=== PATIENT | female | born 1995 | race Caucasian/White ===

== ENCOUNTER 2021-06-26 14:04 | Outpatient (REF) | payer MEDICAID, SELFPAY ==
[2021-06-26 18:08] LABS: Appearance Urine CLEAR; Color Urine YELLOW; Glucose Urine UA NEG (NEG); Leukocyte Esterase Urine NEG (NEG); Nitrite Urine NEG (NEG); Specific Gravity - Urine 1.015 (1.005-1.025); Urine Blood NEG (NEG); Urine Ketones NEG (NEG); Urine Protein NEG (NEG-TRACE)
[2021-06-27 05:14] LABS: CT PCR NOT DETECTED (Not Detect.); NG PCR NOT DETECTED (Not Detect.)
== END 2021-06-26 14:05 | disposition home or self-care (01) ==
LOC: HO.MANLDS 14:04
PROVIDERS: PCP Physician Assistant; Visit Provider Physician Assistant
DX: Z11.3 Encounter for screening for infections with a predominantly sexual mode of transmission (principal); B37.3 Candidiasis of vulva and vagina
CPT/HCPCS: 81003; 87491; 87591

== ENCOUNTER 2024-06-07 13:50 | Outpatient (REF) | payer OTHER, SELFPAY ==
[2024-06-07 14:13] LABS: MANUAL DIFF FLAG NO
[2024-06-07 14:31] LABS: Basophils Percent Auto 0.3 % (0-2); Eosinophils Absolute Auto 0.2 X10*3/uL (0.0-0.4); Eosinophils Percent Auto 2.3 % (0-4); Hematocrit 39.9 % (37.0-47.0); Hemoglobin 14.3 g/dl (12.0-16.0); Imm Gran Abs Auto 0.01 X10*3/uL (0.00-0.03); Imm Gran Pct Auto 0.2 % (0.0-0.4); Lymphocytes Absolute Auto 2.1 X10*3/uL (1.2-4.9); Lymphocytes Percent Auto 32.7 % (20-40); Mean Corpuscular HGB Conc 35.8 g/dl (31.0-35.0); Mean Corpuscular Hemoglobin 32.6 pg (27.0-33.0); Mean Corpuscular Volume 90.9 fL (80.0-98.0); Monocytes Absolute Auto 0.5 X10*3/uL (0.1-1.2); Monocytes Percent Auto 7.9 % (2-11); Neutrophils Absolute Auto 3.7 x10*3/uL (2.0-8.3); Neutrophils Percent Auto 56.6 % (45-73); Platelet Count 251 X10*3/uL (160-400); Red Blood Count 4.39 X10*6/uL (4.20-5.50); Red Cell Distribution Width 11.6 % (11.0-16.0); White Blood Count 6.6 X10*3/uL (4.8-10.8)
[2024-06-07 16:51] LABS: Alanine Aminotransferase 22 U/L (0-31); Albumin Level 4.4 g/dL (3.5-5.0); Alkaline Phosphatase 57 U/L (39-117); Anion Gap 8 (12-20); Aspartate Amino Transferase 21 U/L (5-31); Bilirubin Total 0.8 mg/dL (0.0-1.0); Blood Urea Nitrogen 13 mg/dL (9-16); Calcium 9.2 mg/dL (8.4-10.2); Carbon Dioxide 26 mmol/L (22-29); Chloride 109 mmol/L (96-108); Cholesterol 153 mg/dL (<200); Estimated Glomerular Filt Rate > 60; Glucose Random 85 mg/dL (60-115); HDL Cholesterol 49 mg/dL (>40); Iron 151 mcg/dL (30-160); LDL Cholesterol Calculated 94 mg/dL (<100); Percent Iron Saturation 54 % (15-50); Potassium 4.3 mmol/L (3.3-5.1); Sodium 139 mmol/L (135-145); Total Iron Binding Capacity 281 mcg/dL (228-428); Total Protein 7.2 g/dL (6.5-8.0); Triglycerides 52 mg/dL (<150); Unsaturated Iron Binding 130 ug/dL
--- OUTSIDE RECORDS SUMMARY | 2024-06-07 17:04 | XMS_ITS | Clinical Summary ---
Author Organization Formerly [facility] Address [address] [place] [address] Care Team Providers Care Merchandise Buyer Name Role Phone Unavailable Primary Care Provider Unavailabl e Medications No known medications Social History Tobacco Use Types Packs/Day Years Used Date Smoking Tobacco: Unknown Alcohol Use Standard Drinks/Week Comments Yes 0 (1 standard drink = 0.6 oz pur e alcohol) Sex and Gender Information Value Date Recorded Sex Assigned at Not on file Gender Identity Not on file Sexual Orientation Not on file Last Filed Vital Signs Vital Sign Reading Time Taken Comments Blood Pressure 106/65 08/02/2016 5:15 AM EDT Pulse 94 08/02/2016 5:15 AM EDT Temperature 37.1 ??C (98.7 ??F) 08/02/2016 5:15 AM ED T Respiratory Rate 19 08/02/2016 5:15 AM EDT Oxygen Saturation 95% 08/02/2016 5:15 AM EDT Inhaled Oxygen Concentration - - Weight - - Height - - Body Mass Index - - Plan of Treatment Not on file
--- OUTSIDE RECORDS SUMMARY | 2024-06-07 17:05 | XMS_ITS | Clinical Summary ---
Author Organization [facility] [address] [place] [address] [place] [phone] Phone Care Team Providers Care Lay Out Technician Name Role Phone Marco Rick DO Primary Care Provider [phone] Allergies No known active allergies Medications hydrOXYzine HCL (ATARAX) 10 mg tablet Take 1 Tablet by mouth at bedtime as needed for Itching for up to 360 days. Active triamcinolone (KENALOG) 0.1 % ointment Apply to affected area nightly Active Active Problems Problem Noted Date Diagnosed Date LSC (lichen simplex chronicus) 12/04/2023 Overview (12/23/2023): Last Assessment & Plan: Reviewed findings with patient. I reviewed the mai to overcoming her symptoms is to stop the itching and thin the thickened areas with steroid which will cut down inflammation. I recommended she take hydroxyzine at night to prevent scratching in addition to triamcinolone to areas nightly an coconut oil during the day. I reassured her there is no evidence of infection. She was strictly counseled re: VSC guidelines and given explicit written instructions for changes to make. She will soak and seal prn and stop shaving. I reviewed areas of application and amount of medication to use. She will return in 6 weeks. Encounters Date Type Department Care Team Description 05/20/2024 4:15 PM EDT Clinic Lab Collection [facility] - [address] [phone] Pre-employment drug screening (Primary Dx) from Last 3 Months Surgical History Surgery Date Site/Laterality Comments OTHER SURGICAL HISTORY PROCEDURE: DENIES PREVIOUS SURGERY Medical History Medical History Date Comments Patient denies medical problems DX:Patient denies medical problems Social History Tobacco Use Types Packs/Day Years Used Date Smoking Tobacco: Never Smokeless Tobacco: Never Alcohol Use Standard Drinks/Week Comments Yes 0 (1 standard drink = 0.6 oz pur e alcohol) Comments Unknown Sex and Gender Information Value Date Recorded Sex Assigned at Not on file Legal Sex Female 11:23 AM EST Gender Identity Not on file Sexual Orientation Not on file Obstetrics History Last Filed Vital Signs Vital Sign Reading Time Taken Comments Blood Pressure 108/83 12/04/2023 9:31 AM EDT Pulse 84 12/04/2023 9:31 AM EDT Temperature - - Respiratory Rate - - Oxygen Saturation - - Inhaled Oxygen Concentration - - Weight 75.7 kg (166 lb 12.8 oz) 12/04/2023 9:31 AM EDT Height 171.5 cm (5' 7.5 ) 11/17/2023 10 :27 AM EDT Body Mass Index 25.74 11/17/2023 10:27 AM EDT Plan of Treatment Health Maintenance Due Date Last Done Comments Pneumococcal Vaccine: Pediatrics (0 to 5 Years) and At-Risk Patients (6 to 64 Years) (1 of 2 - PCV) 12/25/2014 COVID-19 Vaccine (3 - season) 2023 08/07/2020, 07/17/2020 Depression Screening 12/08/2023 Social Influencers of Health Screening 12/08/2023 DTaP,Tdap,and Td Vaccines (8 - Td or Tdap) 11/14/2026 11/14/2016, 10/24/2008, 01/04/2001, Additional history exists Cervical Cancer Screening: Pap Smear 11/16/2026 11/17/2023, 11/17/2023, 11/17/2023 Hepatitis B Vaccines Completed 09/28/1996, 02/04/1996, 1995 HIB Vaccines Completed 04/05/1997, 06/01, 04/27/1996, Additional history exists MMR Vaccines Completed 02/19/2000, 04/05/1997 IPV Vaccines Completed 01/04/2001, 06/01, 04/27/1996, Additional history exists Varicella Vaccines Completed 10/24/2008, 12/28/1996 Meningococcal ACWY Vaccine Aged Out 10/26/2015 N o longer eligible based on patient's age to complete this topic HPV Vaccines Completed 09/10/2020, 04/2020, 03/27/2020 HIV Screening Completed 11/17/2023 Hepatitis C Screening Completed 11/17/2023 Influenza Vaccine Completed 05/14/2024, , 02/09/2020, Additional history exists Hepatitis A Vaccines Aged Out No long er eligible based on patient's age to complete this topic Meningococcal B Vaccine Aged Out No l onger eligible based on patient's age to complete this topic RSV Immunization Patients Under 20 months Aged Out No longer eligible based on patient's age to complete this topic Procedures Procedure Name Priority Date/Time Associated Diagnosis Comments POC URINE DRUG SCREEN Routine 05/21/2024 3:25 PM EDT Pre-employment drug screening HEPATITIS C SCREENING Routine 11/17/2023 HPV Routine 11/17/2023 from Last 3 Months or Most Recently Relevant to Health Maintenance Results * POC Urine Drug Screen (05/21/2024 3:25 PM EDT) Amphetamine Screen, Ur POC Negative Negative Benzodiazepines, Ur POC Negative Negative Cocaine, Ur POC Negative Negative Methamphetamine Screen, Ur POC Negative Negative Opiate Scrn, Ur POC Negative Negative THC, Ur POC Negative Negative Temperature, Ur POC 94 Urine Urine specimen obtained by clean catch procedure / Unknown 05/21/2024 3:25 PM EDT Jordan Hanley MD POINT OF CARE TEST ENTER/EDIT OR DERABLES Final Result * Cervical Cancer Screening: HPV (11/17/2023) Cervical Cancer Screening: HPV negative interpretation abstracted Kim Cavazos MD HEALTH MAINTENANCE Final Result * Hepatitis C Screening (11/17/2023) Pathologist [facility] Hepatitis C Screening abstracted Kim Cavazos MD HEALTH MAINTENANCE Final Result from Last 3 Months or Most Recently Relevant to Health Maintenance Insurance [facility] Care Teams Lay Out Technician Relationship Specialty Start Date End Date Marco Rick DO [address] [place], [place] PCP - General 09/09/23
--- OUTSIDE RECORDS SUMMARY | 2024-06-07 17:05 | XMS_ITS | Data Portability ---
Author Organization [facility] Service Address [address] [place] [address] Assessment Encounter Date Assessment Date Assessment LastModified by Organization Details LastModified Time 06/26/2020 06/26/2020 Patient agreed and verbally consents to this audio and video Telehealth appt via a [place] [id number] [place] [id number] (TELEVISION SERVICE ENGINEER) MDM MODERATE MUST MEET 2 OUT OF 3 ELEMENTS: PROBLEMS, DATA OR RISK ELEMENT 1: PROBLEMS ADDRESSED OR OR 1 UNDIAGNOSED NEW PROBLEM OR OR ELEMENT 2: DATA MUST MEET 1 OF 3 CATEGORIES CATEGORY 1: REVIEW OF PRIOR EXTERNAL NOTES, REVIEW OF RESULTS, ORDERING OF EACH TEST, ASSESSMENT REQUIRING INDEPENDENT HISTORIAN OR CATEGORY 2: OR CATEGORY 3: ELEMENT 3: RISK RISK OF COMPLICATIONS AND/OR MORBIDITY OR MORTALITY OF PATIENT MANAGEMENT PROVIDER MUST THOROUGHLY DOCUMENT EACH ELEMENT THAT IS COVERED [email or web address] Not available 06/26/2020 16:28:12 12/18/2020 12/18/2020 Patient agreed and verbally consents to this audio and video Telehealth appt via a secure platform [email or web address] Not available 12/18/2020 11:46:34 03/15/2021 03/15/2021 [id number] [place] [id number] (TELEVISION SERVICE ENGINEER) MDM MODERATE MUST MEET 2 OUT OF 3 ELEMENTS: PROBLEMS, DATA OR RISK ELEMENT 1: PROBLEMS ADDRESSED 1 OR MORE CHRONIC ILLNESS WITH EXACERBATION OR 2 OR MORE STABLE CHRONIC ILLNESSES OR 1 UNDIAGNOSED NEW PROBLEM OR 1 ACUTE ILLNESS W/SYMPTOMS OR 1 ACUTE COMPLICATED INJURY ELEMENT 2: DATA MUST MEET 1 OF 3 CATEGORIES CATEGORY 1: REVIEW OF PRIOR EXTERNAL NOTES, REVIEW OF RESULTS, ORDERING OF EACH TEST, ASSESSMENT REQUIRING INDEPENDENT HISTORIAN OR CATEGORY 2: INDEPENDENT INTERPRETATION OF TESTS BY ANOTHER PHYSICIAN OR SPECIALIST OR CATEGORY 3: DISCUSSION OF MGT OR TEST INTERPRETATION W/EXTERNAL PHYSICIAN OR SPECIALIST ELEMENT 3: RISK RISK OF COMPLICATIONS AND/OR MORBIDITY OR MORTALITY OF PATIENT MANAGEMENT PROVIDER MUST THOROUGHLY DOCUMENT EACH ELEMENT THAT IS COVERED Not available 03/15/2021 11:22:12 Plan of Treatment Reminders Order Date Submit Date Provider Last Modified By Organization Details Last Modified Time Details Appointments None recorded. Lab CBC w/ auto diff 2024 [facility], [address] [place] [address], [address], 5 12:10:31 CMP, serum or plasma 2024 [facility], [address] [place] [address], [address], 5 12:10:31 iron + TIBC + ferritin, serum 2024 [facility], [address] [place] [address], [address], 12:10:31 lipid panel, blood 2024 [facility], [address] [place] [address], [address], 5 12:10:31 vitamin D, 25-hydroxy , total, serum 2024 [facility], [address] [place] [address], [address], 12:10:31 Referral gastroente rologist referral - pt with recurrent episodes of rectal bleeding 2024 [id number] susie Mcneil APRN, [address], [place], [address], 08:29:52 Procedures None recorded. Surgeries None recorded. Imaging None recorded. Medication Orders hydrocorti sone 2.5 % topical cream with perineal applicator 2024 025 [facility]acy #[id number], [address] [place], [address], 5 12:04:24 azithromyc in 250 mg tablet 2021 022 [facility]armacy #0859, [address] [place], [address], 3 08:17:22 Guaifenesi n AC 10 mg-100 mg/5 mL oral liquid 2021 022 [facility] #[id number], [address] [place], [address], 3 08:17:33 Diflucan 150 mg tablet 2020 021 [facility] #0859, [address] [place] [address], [address], 3 15:48:34 trazodone 50 mg tablet 2020 021 [facility] #0859, [address] [place] [address], [address], 3 15:51:15 Diflucan 150 mg tablet 2020 021 [facility] #0859, [address] [place] [address], [address], 3 15:48:34 Patient TargetsNo targets recorded. Patient Instructions Encounter Date Encounter Id Patient Instructions Last Modified By Organization Details Last Modified Time 03/15/2021 [id number] controlling your asthma: care instructions Not available 03/15/2021 11:27:29 learning about asthma Not available 03/15/2021 11:27:29 05/18/2024 [id number] pulse oximetry* Not available 05/18/2024 12:04:21 hemorrhoids: car e instructions Not available 05/18/2024 12:04:22 Reason for Referral Imaging Manager Referral for Painless rectal bleeding pt with recurrent episodes of rectal bleeding Referring Physician: Marco Bigda, Internal Medicine, Encounter Date: 05/18/2024 Results Created Date Observation Date Name Description Value Unit Range Abnormal Flag Note LastModifiedBy Organization Detail LastModifiedTime 05/19/1905/18/2024 pulse oxime try* Result 98 Not Available [facility] [address] [facility] [address], [place], [address], 05/17/2024 12:13:22 08/09/19 23 07/04/2022 XR, foot, 3 or more view No observ ation record ed. [email or web address] Not Available 2022 13:21:44 03/30/19 24 03/29/2023 MRI, ankle + foot, w/o contr ast No observ ation record ed. [facility] [address], [place], [address], 05/08/2023 09:40:59 Result Notes None recorded. Problems Name Problem SNOMED Code Status Onset Date Resolution Date Notes Provider Name and Address Organization Details Recorded Time Asthma 318057398 Active 2019 Marco EarlRajat Rick, DO [address] [facility], [place], [address], [facility] 0 15:01:58 At increased risk for suicide 180914016 Active 2019 Belgica lozano [facility] 5 12:13:39 Candidias is of vagina 63277775 Active 2021 Belgica lozano [facility] 5 12:13:45 Bacterial vaginosis 546066139 Active 2021 Belgica lozano [facility] 5 12:13:45 Pain in left foot 820556623957 107 Active 2022 Belgica lozano [facility] 5 12:13:45 Acute urinary tract infection 998331494 Active 2022 Belgica lozano [facility] 5 12:13:45 Left Achilles tendiniti s 147488173248 102 Active 2023 [facility] 5 12:13:45 Painless rectal bleeding 661840927 Active 2024 Marco Caldwell Albertolavell, DO [address] [place], [address], [facility] 5 11:58:51 Hemorrhoi ds 16398618 Active 2024 Marco ElliottRajat Rick, DO [address] [place], [address], [place] [facility] 5 12:02:34 Anxiety 14258368 [facility] 12:13[facility] Problem Notes None recorded. Procedures Surgical History None recorded. Imaging Results Imaging Date Name Status LastModified by Organiz ation Details LastModified Time 07/04/2022 XR, foot, 3 or more view completed [email or web address] Information not available 08/08/2022 13:21:44 03/29/2023 MRI, ankle + foot, w/o contrast completed [facility] [address], [place], [address], 05/08/2023 09:40:59 Procedure Notes None recorded. Medical Equipment None Reported. Allergies No known drug allergies Medications Name Sig Start Date Stop Date Status Note LastModified by Organization Details LastModified Time tri-prevife m 0.18/0.215/ 0.25 mg-35 mcg tabs 03/30 completed Not Available Not Available Not Available norgestimat e/ethinyl estradiol 0.18/0.215/ 0.25 mg-35 mcg tabs 03/30 completed Not Available Not Available Not Available bupropion hydrochlori de er (xl) 300 mg tb24 03/30 completed Not Available Not Available Not Available fluoxetine hydrochlori de 40 mg caps 03/30 completed Not Available Not Available Not Available duloxetine hydrochlori de 60 mg cpep 02/12 completed Not Available Not Available Not Available fluoxetine 40 mg capsule TAKE 1 CAPSULE BY MOUTH EVERY DAY 03/30 completed Not Available Not Available Not Available prednisone 10 mg tablet TAKE 4 TABLETS BY MOUTH EVERY DAY FOR 3 DAYS 3 TABS X 3 DAYS 2 TABS X 3 DAYS 1 TAB X 3 DAYS active Not Available Not Available No t Available trazodone 50 mg tablet TAKE 1 TABLET BY MOUTH EVERY DAY 04/25 completed Not Available Not Available Not Available azithromyci n 250 mg tablet TAKE 2 TABLETS (500 MG) BY ORAL ROUTE ONCE DAILY FOR 1 DAY THEN 1 TABLET (250 MG) BY ORAL ROUTE ONCE DAILY FOR 4 DAYS 04/25 completed Not Available Not Available Not Available fluconazole 150 mg tablet TAKE 1 TABLET BY MOUTH NOW. MAY REPEAT IN 72 HOURS IF NEEDED. 04/25 completed Not Available Not Available Not Available minocycline 100 mg capsule TAKE ONE PILL BY MOUTH TWICE A DAY . TAKE WITH FOOD. AVOID CALCIUM 04/25 completed Not Available Not Available Not Available Tubersol 5 tub. unit/0.1 mL intradermal injection solution Inject 1 unit by intraderm al route. 11/09 completed Not Available Not Available Not Available sertraline 100 mg tablet 09/16 completed Not Available Not Available Not Available metronidazo le 500 mg tablet TAKE 1 TABLET BY MOUTH TWICE A DAY FOR 7 DAYS 04/25 completed Not Available Not Available Not Available sulfamethox azole 800 mg-trimetho prim 160 mg tablet TAKE 1 TABLET BY MOUTH EVERY 12 HOURS FOR 7 DAYS 05/18 completed Not Available Not Available Not Available prednisone 10 mg tablets in a dose pack 12/31 completed Not Available Not Available Not Available hydrocortis one 2.5 % topical cream with perineal applicator APPLY SPARINGLY TO AFFECTED AREA 2 TO 4 TIMES A DAY active Not Available Not Available No t Available lorazepam 0.5 mg tablet TAKE 1 TABLET BY MOUTH TWICE A DAY NEEDED 04/25 completed Not Available Not Available Not Available betamethaso ne valerate 0.1 % topical cream APPLY THIN COAT TO AFFECTED AREA TWICE A DAY 05/18 completed Not Available Not Available Not Available triamcinolo ne acetonide 0.1 % topical ointment APPLY TO AFFECTED AREA NIGHTLY FOR 2WEEKS THEN TWICE WKLY FOR MAINTENAN CE 05/18 completed Not Available Not Available Not Available clotrimazol e-betametha sone 1 %-0.05 % topical cream APPLY TOPICALLY TO AFFECTED AREA AND SURROUNDI NG AREAS OF SKIN EVERY MORNING AND EVENING FOR 5 DAYS 04/25 completed Not Available Not Available Not Available codeine 10 mg-guaifene sin 100 mg/5 mL oral liquid Take 10 mL every 4 hours by oral route for 7 days. 04/25 completed Not Available Not Available Not Available ibuprofen 600 mg tablet TAKE 1 TABLET BY MOUTH THREE TIMES A DAY FOR 7 DAYS 05/18 completed Not Available Not Available Not Available albuterol sulfate HFA 90 mcg/actuati on aerosol inhaler TAKE 2 PUFFS BY MOUTH EVERY 4 HOURS NEEDED active Not Available Not Available No t Available fluoxetine 20 mg capsule 09/16 completed Not Available Not Available Not Available bupropion HCl XL 300 mg 24 hr tablet, extended release TAKE 1 TABLET BY MOUTH EVERY DAY IN THE MORNING active Not Available Not Available No t Available bupropion HCl XL 150 mg 24 hr tablet, extended release TAKE 1 TABLET EVERY MORNING FOR 1 WEEK THEN STOP AND START TAKING THE 300 MG TABLET 06/26 completed Not Available Not Available Not Available Velivet Triphasic Regimen (28) 0.1 mg/0.125 mg/0.15 mg-25 mcg tablet TAKE 1 TABLET BY MOUTH EVERY DAY 04/25 completed Not Available Not Available Not Available Tri-Prevife m (28) 0.18 mg(7)/0.215 mg(7)/0.25 mg(7)-35 mcg tablet 12/31 completed Not Available Not Available Not Available duloxetine 60 mg capsule,del ayed release TAKE 1 CAPSULE BY MOUTH EVERY DAY 06/26 completed Not Available Not Available Not Available Boostrix Tdap 2.5 Lf unit-8 mcg-5 Lf/0.5 mL intramuscul ar syringe 09/16 completed Not Available Not Available Not Available Sronyx 0.1 mg-20 mcg tablet TAKE 1 TABLET BY MOUTH EVERY DAY 04/25 completed Not Available Not Available Not Available Vitals Date Recorded Body height Body mass index (BMI) Body weight Oxygen saturation Oxygen saturation in Arterial blood by Pulse oximetry Heart rate Systolic blood pressure Diastolic blood pressure Provider Name and Address Organization Details Last Updated DateTime 3 170.18 cm 24.7 kg/m2 60837.1 6 g 98 % 98 % 90 /min 124 mm[Hg] 72 mm[Hg] Batsheva Carlson [facility] 3 15:52:19 Date Recorded Body height Body mass index (BMI) Body weight Heart rate Oxygen saturation Oxygen saturation in Arterial blood by Pulse oximetry Systolic blood pressure Diastolic blood pressure Provider Name and Address Organization Details Last Updated DateTime 5 170.18 cm 26.2 kg/m2 51747.7 2 g 141 /min 98 % 98 % 120 mm[Hg] 80 mm[Hg] Belgica Caraballo [facility] 5 11:39:39 Social History Question Answer Notes LastModified by Organizat ion Details LastModified Time Tobacco Smoking Status Never Smoker Not Available [employer] 01/03/2020 03:36:23 What Was The Date Of Your Most Recent Tobacco Screening? 05/18/2024 [email or web address] Information not available 05/18/2024 Sex: Unknown Functional Status None recorded. Mental Status None recorded. Family History Nothing Reported. Medical History No medical history recorded. Gynecological HistoryNo gynecological history recorded. Obstetrics History GPAL:G 0 P 0 0 0 0 Immunizations Vaccine Type Date Status Note Provider Nam e and Address Organization Details Recorded Time MMR 02/19/2000 miguel lozano [facility] 12/04/2020 14:14:09 MMR 04/05/1997 miguel lozano [facility] 12/04/2020 14:14:19 varicella 10/24/2008 miguel lozano [facility] Internal [facility] 12/04/2020 14:14:37 varicella 12/28/1996 miguel lozano [facility] Internal [facility] 12/04/2020 14:14:41 Hep B, adolescent or pediatric 09/28/1996 miguel lozano [facility] 12/04/2020 14:15:03 Hep B, adolescent or pediatric 02/04/1996 miguel lozano [facility] 12/04/2020 14:15:09 Hep B, adolescent or pediatric 1995 miguel lozano [facility] Internal [facility] 12/04/2020 14:15:14 Tdap 10/24/2008 miguel lozano, [facility] 12/04/2020 14:15:28 COVID-19, mRNA, LNP-S, PF, 30 mcg/0.3 mL dose 07/17/2020 completed Batsheva lozano [facility] 04/25/2022 08:18:26 COVID-19, mRNA, LNP-S, PF, 30 mcg/0.3 mL dose 08/07/2020 completed Batsheva lozano, [facility] 04/25/2022 08:18:33 influenza, unspecified formulation 02/09/2020 completed Batsheva lozano, [facility] 04/25/2022 08:18:55 influenza, unspecified formulation 05/14/2024 completed Marlo lozano, [facility] 05/16/2024 08:27:13 Past Encounters Encounter ID Performer Location Encounter Start Date Encounter Closed Date Diagnosis/Indication Diagnosis SNOMED-CT Code Diagnosis ICD10 Code Diagnosis Note [id number] Narda Sumner NP, S [address] [address] 09/16/2017 14:46:36 09/17/2017 16:14:25 Contact dermatitis 19273972 L25.9 finish pred. as prescribed Anxiety 15305527 F41.9 symptoms will improve when off prednisone , not chronic Acne 93619426 L70.9 see if resolves with cessation of prednisone [id number] Marco Rick [address] [address] 12/31/2018 14:48:29 12/31/2018 15:15:50 Fatigue 27400167 R53.83 long discussion [id number] Marco Rick [address] [address] 03/30/2019 14:17:55 03/30/2019 14:51:15 Active or passive immunization 470994653 Z23 Anxiety 63938508 F41.9 will change to duloxetine 60 stop fluoxetine will decrease the wellbutrin to 150 for now and see how this plays out [id number] Marco Rick DO [facility] [address] [address] 08/02/2019 14:40:03 08/02/2019 15:09:03 Asthma 160465136 J45.909 using inhaler more with activities Fractured nasal bones 26 7498029 S02.2XXA Deviated nasal septum 12 1564774 J34.2 will refer to ent 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 Marco Rick [facility] [address] [place] [place] [address] 11/21/2019 09:34:17 11/21/2019 10:00:48 Tuberculosis screening 523943071 Z11.1 [id number] Marco Rick [facility] Internal [facility] [address] [place] [address] 11/23/2019 09:52:14 11/23/2019 10:27:53 Tuberculosis screening 792346759 Z11.1 [id number] LINK COLON [facility] [address] [address] 02/13/2020 08:47:09 02/13/2020 15:46:32 Suicide attempt 55592163 T14.91XD not necessaril y a true suicide attempt but will document in chart in case Tachycardia 8933649 R00. 0 seeing cardio tomorrow for fu with holter and scheduling echo Anxiety 60300045 F41.9 following with psychiatry [id number] LINK [place]ON [facility] [address] [place] [address] 06/26/2020 09:15:20 06/26/2020 16:53:08 Candidiasis of vagina 26436818 B37.3 yeast infection with pruritis and increased discharge Anxiety 06173392 F41.9 following with psychiatry stopped medication s stable per patient [id number] LINK [place]ON [facility] [address] [address] 12/18/2020 08:34:43 12/18/2020 15:04:49 Anxiety 91339698 F41.1 following with psychiatry stopped medication s stable per patient Insomnia 893815317 G47.0 9 will trial on trazodone for sleep related to increased anxiety Candidal vulvovaginitis 51362724 B37.3 will give the patient diflucan for current yeast infection [id number] Marco Rick [facility] [address] [address] 03/15/2021 09:12:47 03/19/2021 11:23:48 Asthmatic bronchitis 820307964 J45.909 Asthma 813978643 J45.90 9 using inhaler more with activities Anxiety 83567939 F41.1 will change to duloxetine 60 will decrease the wellbutrin to 150 for now and see how this plays out [id number] L[address] [place]ON [facility] [address] [address] 04/25/2022 15:38:57 04/25/2022 16:17:03 Asthma 227144520 J45.20 stable Anxiety 67071445 F41.1 stable per patient [id number] Marco Rick [facility] [address] [address] 05/18/2024 11:30:08 05/18/2024 13:30:45 Active or passive immunization 455315758 Z23 Adult heal th examination 779036457 Z00.00 Asthma 663904445 J45.20 using inhaler more with activities Painless r ectal bleeding 276097864 K62.5 Hemorrhoids 91464140 K64 .9 Health Concerns Section Related Observation LastModified by Organization Detai ls LastModified Time None Recorded Concern Status LastModified by Organization Details LastModified Time None Recorded Advance Directives Directive None Recorded Payers Encounter Date Sequence Insurance Name Policy Number Policy Campbell Covered Member ID Campbell Member ID Guarantor Name 06/26/2020 1 [place] [id number] [facility] [id number] [facility] 12/18/2020 1 [place] [facility] Sammi [facility] [id number] Sammi Jackson 03/15/2021 1 [place] [facility] Sammi Jackson [id number] Sammi Jackson 04/25/2022 1 [place] [facility] Sammi Jackson [id number] Sammi Jackson 05/18/2024 1 [place] [facility] [id number] Sammi Jackson [id number] Sammi Jackson Notes Date Note Type Note Provider Name a nd Address Organization Details Recorded Time 1 text/html medication fu the patient has stopped her anxiety medications she wanted to see how she felt off of them and her anxiety is stable the patient is working on finding a new job the patient is waiting to get a COVID vaccine the patient has a yeast infection again discussed symptoms, increased discharge, itching and mild discomfort will send in script of diflucan for patient to use otherwise the patient is doing well LINK [place] [address] [place], [address], [facility] 06/26/2020 16:29:43 1 text/html medication tele-med anxiety: the patient states she has been feeling goodstates everything feels stable the patient does report she has a lot of anxiety which she has discussed with her therapist who recommended trazodone and lexaprodiscussed MOA of the medications, dosing and how they help with anxiety the patient is will hold on starting lexaprofeels the bupropion is working better now that she isn't drinking as much will fu in a month to discuss the medications and any further adjustments that need to be made [place] [place] [address] [place], [address], [facility] 12/18/2020 11:48:46 2 text/html patient is evaluated via tele/video assessment per patient consentduring current pandemic began as a negin congest last week and has been having sore throat and coughstates has been having mult testing for covid and is negativedid have a negative pcrand recently has gotten worse Marco Rick DO [address] [place], [address], [facility] 03/15/2021 11:27:46 3 text/html medication check asthma: stable with the albuterolthe patient uses it for cold weather and for exerciseno new night-time symptomsstable, doing better with the inhaler on board anxiety: doing really well on the bupropionalso helped her lose weight which she is pleased with her progress vital were stable [place]INK [place]ON [address] [place], [address], [facility] 04/25/2022 16:15:10 5 text/html Annual WellnessReported bypatient.Diet and Nutrition:healthy diet Fracture Risk:no history of fractures; no recent explained fracture; no sudden unexplained fractures; no previous musculoskeletal injuries Physical Activity:exercises on a regular basis; recent increase in physical activity; good physical condition Additional Lifestyle Factors:no tobacco use; no alcohol intake; stopped drinking alcohol Depression Risk:never feels sad, empty, or tearful; no loss of interest in activities; no significant changes in weight; no sleep disturbances or insomnia; no agitation; no loss of energy; no feelings of worthlessness or guilt; no thoughts of suicide; no history of depression; no history of mood disorders Hearing:no loss of hearing Vision:no vision problems Marco Rick DO [address] [place], [address], [facility] 05/18/2024 12:05:43 OBGyn Episode No OBEpisode recorded.
--- OUTSIDE RECORDS SUMMARY | 2024-06-07 17:05 | XMS_ITS | Data Portability ---
Author Organization [facility], , [facility] Address [address] [place] [address] Care Team Providers Care Blue Leather Sorter Name Role Phone [facility] KAREN BARBA Primary Care Provider Unavailab le Assessment No assessment recorded. Plan of Treatment Reminders Order Date Submit Date Provider Last Modified By Organization Details Last Modified Time Details Appointments None recorded. Lab urinalysis, dipstick 2014 015 [facility], [address] [place] [address], [id number], 5 17:49:50 culture, urine 2014 015 [facility], [address] [place] [address], [id number], 5 09:12:21 CT + NG DNA, PCR, unspecified specimen 2014 015 [facility], [address] [place] [address], [id number], 5 16:05:47 CT + NG DNA, PCR, unspecified specimen 2013 014 [facility], [address] [place] [address], [id number], 4 21:09:23 Referral None recorded. Procedures screening for mood disorder (PROC) 2013 [address] [place] [address], [address] [place] [address], [id number], 4 15:19:15 Surgeries None recorded. Imaging None recorded. Medication Orders Bactrim DS 800 mg-160 mg tablet 2014 015 [id number], [address] [place] [address], [place], [id number], 5 17:49:50 Patient TargetsNo targets recorded. Patient Instructions Encounter Date Encounter Id Patient Instructions Last Modified By Organization Details Last Modified Time 07/15/2013 [id number] ear pain Warm compresseson the ear Avoid allergy exposures - dust, mold, pets or pollen. Recommend a daily antihistimine: over the counter loratadine (claritin), or cetirizine (zyrtec). A neti-pot or other saline nasal rinse may improve the symptoms. Follow up if symptoms continue or worsen. [email or web address] Not available 07/15/2013 17:25:15 10/19/2013 [id number] -Nurse visit for HPV #1 and menactra (print copy of vaccines) -PHA 1 year [email or web address] Not available 10/19/2013 15:17:15 01/03/2014 [id number] -Check with your insurance to 1) make sure they cover the device AND placement, 2) who they pay for to do it (a specific adult education teacher) - can check insurance website first -Let me know who you would like me to refer you to as a adult education teacher (there are a few people in the area)? ? ? so I can place it (you can call or portal) Not available 01/03/2014 16:14:48 03/20/2014 [id number] Try Delsym for the cough. Not available 03/20/2014 12:40:08 My Health To Do List As we discussed and agreed upon at your visit please work on the following: Not available 03/20/2014 12:40:08 Reason for Referral None Reported. Results Created Date Observation Date Name Description Value Unit Range Abnormal Flag Note LastModifiedBy Organization Detail LastModifiedTime 08/08/1908/07/2014 urina lysis , dipst ick Leukocytes Small Not Available [address], [address], 08/07/2014 15:27:28 08/08/19 15 08/07/2014 urina lysis , dipst ick Nitrite negati ve Not Available [address], [address], 08/07/2014 15:27:28 08/08/19 15 08/07/2014 urina lysis , dipst ick Urobilinogen 1 Not Available [address], [address], 08/07/2014 15:27:28 08/08/19 15 08/07/2014 urina lysis , dipst ick Protein 30 Not Available [address], [address], 08/07/2014 15:27:28 08/08/19 15 08/07/2014 urina lysis , dipst ick pH 7.0 Not Available [address], [address], 08/07/2014 15:27:28 08/08/19 15 08/07/2014 urina lysis , dipst ick Blood Non-He molyze d: Trace Not Available [address], [address], 08/07/2014 15:27:28 08/08/19 15 08/07/2014 urina lysis , dipst ick Specific [place] 1.015 Not Available [address], [address], 08/07/2014 15:27:28 08/08/19 15 08/07/2014 urina lysis , dipst ick Ketone Negati ve Not Available [address], [address], 08/07/2014 15:27:28 08/08/19 15 08/07/2014 urina lysis , dipst ick Bilirubin Negati ve Not Available [address], [address], 08/07/2014 15:27:28 08/08/19 15 08/07/2014 urina lysis , dipst ick Glucose Negati ve Not Available [address], [address], 08/07/2014 15:27:28 08/08/19 15 08/07/2014 urina lysis , dipst ick Appearance Cloudy Not Available [address], [address], 08/07/2014 15:27:28 08/08/19 15 08/07/2014 urina lysis , dipst ick Color Dark Yellow Not Available [address], [address], 08/07/2014 15:27:28 10/20/19 14 10/19/2013 edelmira harden for mood disor elizabeth (PROC ) Patient Score 4 Not Available [address], [address], 10/19/2013 15:17:15 10/20/19 14 10/23/2013 CT + NG DNA, PCR, unspe cifie d speci men N. gonorrhoeae Neg negati ve Not Available [address], [address], 10/23/2013 21:09:23 10/20/19 14 10/23/2013 CT + NG DNA, PCR, unspe cifie d speci men C. trachomatis Neg negati ve Not Available [address], [address], 10/23/2013 21:09:23 06/13/19 15 06/12/2014 CBC w/ auto diff WBC 10.5 K/uL 3.4-11 .2 Not Available [facility] [address] [place], [address], 06/12/2014 11:22:19 06/13/19 15 06/12/2014 CBC w/ auto diff RBC 4.77 M/uL 3.80-4 .80 Not Available [facility] [address] [place], [address], 06/12/2014 11:22:19 06/13/19 15 06/12/2014 CBC w/ auto diff hemoglobin 14.9 g/dL 12.0-1 5.0 Not Available [facility] ([facility] [address] [place], [address], 06/12/2014 11:22:19 06/13/19 15 06/12/2014 CBC w/ auto diff hematocrit 42.6 % 36.0-4 6.0 Not Available [facility] ([facility]) [address] [place], [address], 06/12/2014 11:22:19 06/13/19 15 06/12/2014 CBC w/ auto diff MCV 89.3 fL 79.0-9 8.0 Not Available [facility]) [address] [place] [address], [address], 06/12/2014 11:22:19 06/13/19 15 06/12/2014 CBC w/ auto diff MCH 31.2 pg 27.0-3 4.8 Not Available [facility] [address] [place], [address], 06/12/2014 11:22:19 06/13/1906/12/2014 CBC w/ auto diff MCHC 35.0 g/dL 31.5-3 6.0 Not Available [facility]) [address] [place] [address], [address], 06/12/2014 11:22:19 06/13/1906/12/2014 CBC w/ auto diff RDW 11.9 % 10.8-1 4.6 Not Available [facility]) [address] [place] [address], [address], 06/12/2014 11:22:19 06/13/1906/12/2014 CBC w/ auto diff MPV 10.5 fL 9.4-12 .4 Not Available [facility] [address] [place], [address], 06/12/2014 11:22:19 06/13/19 15 06/12/2014 CBC w/ auto diff platelet count 221 K/uL 130-40 0 Not Available [facility]) [address] [place] [address], [address], 06/12/2014 11:22:19 06/13/19 15 06/12/2014 CBC w/ auto diff neutrophils 91.0 % 45.3-7 7.7 high Not Available [facility]) [address] [place] [address], [id number], 06/12/2014 11:22:19 06/13/19 15 06/12/2014 CBC w/ auto diff lymphocytes 4.0 % 12.3-3 9.7 low Not Available [facility] [address] [place] [address], [address], 06/12/2014 11:22:19 06/13/19 15 06/12/2014 CBC w/ auto diff monocytes 4.0 % 4.1-12 .8 low Not Available [facility]) [address] [place] [address], [address], 06/12/2014 11:22:19 06/13/19 15 06/12/2014 CBC w/ auto diff eosinophils 0.00 % 0.00-7 .20 Not Available [facility] [address] [place] [address], [address], 06/12/2014 11:22:19 06/13/19 15 06/12/2014 CBC w/ auto diff basophils 0.00 % 0.00-2 .80 Not Available [facility] [address] [place] [address], [address], 06/12/2014 11:22:19 06/13/19 15 06/12/2014 CBC w/ auto diff absolute neutrophil 9.7 K/uL 1.4-7. 7 high Not Available [facility]) [address] [place] [address], [id number], 06/12/2014 11:22:19 06/13/19 15 06/12/2014 CBC w/ auto diff absolute lymphocyte 0.4 K/uL 0.6-3. 2 low Not Available [facility]) [address] [place] [address], [address], 06/12/2014 11:22:19 06/13/19 15 06/12/2014 CBC w/ auto diff absolute monocytes 0.4 K/uL 0.1-0. 6 Not Available [facility]) [address] [place] [address], [address], 06/12/2014 11:22:19 06/13/19 15 06/12/2014 CBC w/ auto diff absolute eosinophil 0.00 K/uL 0.01-0 .50 low Not Available [facility]) [address] [place] [address], [address], 06/12/2014 11:22:19 06/13/19 15 06/12/2014 CBC w/ auto diff absolute basophils 0.00 K/uL Not Available [facility]) [address] [place] [address], [address], 06/12/2014 11:22:19 06/13/19 15 06/12/2014 CBC w/ auto diff immature granulocyte 0.30 % 0.00-0 .50 Not Available [facility]) [address] [place] [address], [address], 06/12/2014 11:22:19 06/13/19 15 06/12/2014 CBC w/ auto diff absolute immature granulocyte 0.03 K/uL 0.00-0 .03 Not Available [facility] [address] [place] [address], [address], 06/12/2014 11:22:19 06/13/19 15 06/12/2014 diffe ziyad verduzco l, blood bands 1 % 0-15 Not Available [facility] [address] [place], [address], 06/12/2014 11:22:20 06/13/19 15 06/12/2014 ziyad salas l, blood RBC morphology Normal Not Available [facility] [address] [place], [address], 06/12/2014 11:22:20 06/13/19 15 06/12/2014 basic metab olic panel glucose 111 mg/dL 70-99 high Not Available [facility] [address] [place], [address], 06/12/2014 11:22:21 06/13/19 15 06/12/2014 basic metab olic panel BUN 19 mg/dL 6-19 Not Available [facility] [address] [place] [address], [address], 06/12/2014 11:22:21 06/13/19 15 06/12/2014 basic metab olic panel creatinine 0.8 mg/dL 0.5-1. 5 Not Available [facility] [address] [place], [address], 06/12/2014 11:22:21 06/13/19 15 06/12/2014 basic metab olic panel GFR >60 mL/mi n >60 NKDEP (Noni onal Kidne y Disea se Educa tion Progr am) does not endor se the use of the MDRD (Wanda ficat ion of Diet in Renal Disea se) equat ion for estim ating GFR in patie nts that are not betwe en the ages of 18 and 70. Not Available [facility]) [address] [place], [address], 06/12/2014 11:22:21 06/13/19 15 06/12/2014 basic metab olic panel sodium 135 mEq/L 133-14 5 Not Available [facility] [address] [place], [address], 06/12/2014 11:22:21 06/13/19 15 06/12/2014 basic metab olic panel potassium 4.1 mEq/L 3.3-5. 1 Not Available [facility] [address] [place], [address], 06/12/2014 11:22:21 06/13/19 15 06/12/2014 basic metab olic panel chloride 98 mEq/L 96-108 Not Available [facility] [address] [place], [address], 06/12/2014 11:22:21 06/13/19 15 06/12/2014 basic metab olic panel CO2 29 mEq/L 21-35 Not Available [facility]) [address] [place] [address], [address], 06/12/2014 11:22:21 06/13/19 15 06/12/2014 basic metab olic panel calcium 9.8 mg/dL 8.4-10 .3 Not Available [facility] [address] [place], [address], 06/12/2014 11:22:21 06/13/19 15 06/12/2014 basic metab olic panel anion gap 12 mEq/L 10-20 Not Available [facility] [address] [place] [address], [address], 06/12/2014 11:22:21 06/13/19 15 06/12/2014 C-scott ctive prote in, quant itati ve, serum or plasm a C-reactive protein 0.35 mg/dL 0.00-0 .50 Not Available [facility] [address] [place], [address], 06/12/2014 11:22:22 06/13/19 15 06/12/2014 hepat ic funct ion panel , serum alkaline phosphatase 78 U/L 39-117 Not Available [facility] [address] [place], [address], 06/12/2014 11:22:23 06/13/19 15 06/12/2014 hepat ic funct ion panel , serum total bilirubin 0.8 mg/dL 0.0-1. 2 Not Available [facility] ([facility] [address] [place], [address], 06/12/2014 11:22:23 06/13/19 15 06/12/2014 hepat ic funct ion panel , serum bilirubin direct <0.2 mg/dL 0.0-0. 3 Not Available [facility] ([facility] [address] [place], [address], 06/12/2014 11:22:23 06/13/19 15 06/12/2014 hepat ic funct ion panel , serum bilirubin indirect see below mg/dL Not able to calcu late. Not Available [facility] [address] [place], [address], 06/12/2014 11:22:23 06/13/19 15 06/12/2014 hepat ic funct ion panel , serum AST (SGOT) 14 U/L 0-37 Not Available [facility] [address] [place], [address], 06/12/2014 11:22:23 06/13/19 15 06/12/2014 hepat ic funct ion panel , serum ALT (SGPT) 10 U/L 0-40 Not Available [facility] [address] [place], [address], 06/12/2014 11:22:23 06/13/19 15 06/12/2014 hepat ic funct ion panel , serum total protein 7.4 g/dL 6.5-8. 0 Not Available [facility] ([facility]) [address] [place], [address], 06/12/2014 11:22:23 06/13/19 15 06/12/2014 hepat ic funct ion panel , serum albumin 4.7 g/dL 3.9-4. 8 Not Available [facility] [address] [place] [address], [address], 06/12/2014 11:22:23 06/13/19 15 06/12/2014 hepat ic funct ion panel , serum globulin 2.7 gm/dL 1.0-4. 8 Not Available [facility]) [address] [place] [address], [address], 06/12/2014 11:22:23 06/13/19 15 06/12/2014 hepat ic funct ion panel , serum A/G ratio 1.7 gm/dL 1.0-4. 8 Not Available [facility]) [address] [place] [address], [address], 06/12/2014 11:22:23 06/13/19 15 06/12/2014 lipas e, serum or plasm a lipase 19 U/L 16-63 Not Available [facility]) [address] [place] [address], [address], 06/12/2014 11:22:24 06/13/19 15 06/12/2014 pregn krystian test, urine test, urine Negati ve negati ve Not Available [facility]) [address] [place] [address], [address], 06/12/2014 12:29:20 08/08/19 15 08/09/2014 cultu re, urine culture, urine, routine CULTU RE, URINE , ROUTI NE MICRO NUMBE R: [id number] TEST STATU S: FINAL SPECI MEN SOURC E: URINE SPECI MEN QUALI TY: ADEQU ATE RESUL T: Multi ple organ isms prese nt, each less than 10,00 0 CFU/m L. These organ isms, commo nly found on exter nal and inter nal genit juan r, are consi dered to be colon izers . No furth er testi ng perfo rmed. Not Available [facility] [address], [place], [address], 08/09/2014 09:12:21 08/08/19 15 08/13/2014 CT + NG DNA, PCR, unspe cifie d speci men N. gonorrhoeae Neg negati ve Not Available [address], [address], 08/13/2014 16:05:47 08/08/19 15 08/13/2014 CT + NG DNA, PCR, unspe cifie d speci men C. trachomatis Neg negati ve Not Available [address], [address], 08/13/2014 16:05:47 Result Notes None recorded. Problems Name Problem SNOMED Code Status Onset Date Resolution Date Notes Provider Name and Address Organization Details Recorded Time Dyspnea 478712464 Completed 01/19/2013 Not Available [facility] 3 02:02:45 Visual disturbanc e 57652544 Active Not Available [facility] 3 03:15:17 Asthma 771084917 Active Not Available [facility] 3 03:34:35 Exercise-i nduced asthma 34734550 Active Not Available [facility] 3 03:15:17 Problem Notes None recorded. Procedures Surgical History Date Name Laterality Status Provider Name and Address Organization Details Recorded Time 4 Cerumen Removal completed Izabela Troy CMA(AAMA) [facility] 07/15/2013 17:25:11 2 IV Therapy completed Karen Barba [address] [place] [place] [address], [phone], [facility] 12/03/2011 13:16:41 2 Asthma Control Test (12 + years old) completed Josselin Delgado CMA [facility] 10/22/2011 09:08:33 0 Asthma Control Test (12 + years old) completed Angie Rapp [facility] 11/14/2009 16:23:33 Imaging Results None recorded. Procedure Notes None recorded. Medical Equipment None Reported. Allergies No known drug allergies Medications Name Sig Start Date Stop Date Status Note LastModified by Organization Details LastModified Time Vicodin 5 mg-500 mg tablet Take 2 tablets 3 times a day by oral route. 2011 active Not Available Not Available Not Avai lable prednison e 20 mg tablet Take 3 tablets every day by oral route for 2 days. 12/04 completed was itchy and jittery so stopped taking it Not Available Not Available Not Available penicilli n V potassium 500 mg tablet Take 1 tablet twice a day by oral route for 10 days. 12/09 completed Not Available Not Available Not Available norgestim ate-ethin yl estradiol 0.18mg/0. 215mg/0.2 5mg-0.035 mg(28)tab let take 1 tablet by mouth once daily 2012 active Not Available Not Available Not Avai lable albuterol sulfate HFA 90 mcg/actua tion aerosol inhaler Inhale 2 puffs every 4 hours by inhalati on route. 2013 active Not Available Not Available Not Avai lable sodium chloride 0.9 % solution 2011 active Not Available Not Available Not Avai lable Bactrim DS 800 mg-160 mg tablet Take 1 tablet every 12 hours by oral route for 3 days. 2014 active Not Available Not Available Not Avai lable Ortho Tri-Cycle n LO (28) 0.18 mg/0.215 mg/0.25 mg-25 mcg tablet Take 1 tablet every day by oral route for 84 days. 2013 active needs [facility] supply to [facility] Not Available Not Available Not Available Vicodin 5 mg-300 mg tablet Take 2 tablets 3 times a day by oral route. 2011 active Pharmacy didn't have Not Available Not Available Not Available Vitals Date Recorded Body weight Body height Body mass index (BMI) Heart rate Systolic blood pressure Diastolic blood pressure Provider Name and Address Organization Details Last Updated DateTime 4 57693.3 3943 g 169.672 cm 21.9 kg/m2 80 /min 112 mm[Hg] 76 mm[Hg] Lillian Simmons, [facility] 4 16:58:37 Date Recorded Body weight Heart rate Systolic blood pressure Diastolic blood pressure Provider Name and Address Organization Details Last Updated DateTime 10/19/2013 43712.708 91 g 68 /min 104 mm[Hg] 60 mm[Hg] Abbie Sullivan [facility] 10/19/2013 14:01:21 Date Recorded Body height Body mass index (BMI) Provider Name and Address Organization Details Last Updated DateTime 10/19/2013 169.545 cm 22.6 kg/m2 Karen Darnell Barba [address] [place] [address], [phone], [facility] 10/19/2013 14:54:06 Date Recorded Body weight Heart rate Systolic blood pressure Diastolic blood pressure Provider Name and Address Organization Details Last Updated DateTime 01/03/2014 25702.670 76 g 68 /min 118 mm[Hg] 70 mm[Hg] Abbie Sullivan [facility] 01/03/2014 15:40:37 Date Recorded Body height Body mass index (BMI) Body weight Heart rate Body temperature Systolic blood pressure Diastolic blood pressure Provider Name and Address Organization Details Last Updated DateTime 5 169.545 cm 22.8 kg/m2 89304.0 06615 g 78 /min 97.7 [degF] 120 mm[Hg] 74 mm[Hg] Ni Willis [facility] 5 12:23:39 Date Recorded Body weight Body height Body mass index (BMI) Heart rate Body temperature Systolic blood pressure Diastolic blood pressure Provider Name and Address Organization Details Last Updated DateTime 5 99781.8 14110 g 169.545 cm 22.7 kg/m2 90 /min 98 [degF] 120 mm[Hg] 78 mm[Hg] Sammi Dye [facility] 5 15:26:21 Social History Question Answer Notes LastModified by Organizat ion Details LastModified Time Tobacco Smoking Status Never Smoker Not Available [facility] 01/16/2011 04:39:41 What Is Your Level Of Alcohol Consumption? None Information not available 10/20/2012 What Is Your Level Of Caffeine Consumption? None Information not available 01/16/2011 Which Illicit Or Recreational Drugs Have You Used? None Information not available 10/20/2012 Education 12 HS Information no t available 03/20/2014 Sibling Name Samuel Information not available 10/20/2012 Sibling Name Brock Information not available 10/20/2012 Sibling Name Vikash Information not available 10/20/2012 Seat Belts Used Routinely Yes Information not available 10/20/2012 Are You Sexually Active? Yes Information not available 10/20/2012 What Types Of Sporting Activities Do You Participate In? Soccer, Track Information not available 10/20/2012 Sex: Unknown Functional Status Question Answer Note LastModified by Organization D etails LastModified Time What is your exercise level? Heavy Information not available 10/20/2012 Mental Status None recorded. Family History Relationship Description Onset Age of this Age Resolved Age Notes LastModified by Organization Details LastModified Time Mother Problem health y Not available 10/19/2013 14:24:30 Mother Problem endome triosi s/hyst erecto my Not available 10/19/2013 14:24:30 Mother Migraine Not availab le 10/19/2013 14:24:30 Mother Spinal stenosis Not available 10/19 14:24:30 Brother Problem develo pmenta l delay Not available 10/19/2013 14:24:30 Brother Problem chroni c append icitis Not available 10/19/2013 14:24:30 Father Problem health y Not available 10/19/2013 14:24:30 Maternal Grandmother Disorder of thyroid gland hashim otos thyroi ditis Not available 10/19/2013 14:24:30 Maternal Grandmother Malignant tumor of colon 38 Not available 10/19 14:24:30 Maternal Grandmother Degenerative disorder of macula Not available 10/19 14:24:30 Maternal Grandmother Spinal stenosis Not available 10/19 14:24:30 Maternal Grandfather Myocardial infarction 52 Not available 10/01 14:24:30 Paternal Grandfather Myocardial infarction 48 CABG Not available 10/01 14:24:30 Medical History Condition Response Asthma Y Gynecological History Statement/Question Response Menses Monthly Y Current Control Method BCPs Age at Menarche 12 Obstetrics History GPAL:G 0 P 0 0 0 0 Immunizations Vaccine Type Date Status Note Provider Nam e and Address Organization Details Recorded Time Influenza, split virus, trivalent, preservative 2 completed Not Available [facility] 03/19/2019 02:18:31 DTaP, unspecified formulation 7 completed Not Available [facility] 01/15/2011 05:22:41 DTaP, unspecified formulation 8 completed Not Available [facility] 01/15/2011 05:22:41 DTaP, unspecified formulation 1 completed Not Available [facility] 01/15/2011 05:22:41 DTaP, unspecified formulation 7 completed Not Available [facility] 01/15/2011 05:22:41 DTaP, unspecified formulation 7 completed Not Available [facility] 01/15/2011 05:22:41 MMR 0 completed Not Available [facility] 01/15/2011 05:22:41 Hep B, unspecified formulation 6 completed Not Available [facility] 01/15/2011 05:22:41 Hib, unspecified formulation 7 completed Not Available [facility] 01/15/2011 05:22:41 Hep B, unspecified formulation 7 completed Not Available [facility] 01/15/2011 05:22:41 Hib, unspecified formulation 7 completed Not Available [facility] 01/15/2011 05:22:41 OPV 7 completed Not Available [facility] 01/15/2011 05:22:41 Hib, unspecified formulation 7 completed Not Available [facility] 01/15/2011 05:22:41 Hep B, unspecified formulation 6 completed Not Available [facility] 01/15/2011 05:22:41 OPV 7 completed Not Available [facility] 01/15/2011 05:22:41 Tdap 9 completed Not Available [facility] 01/15/2011 05:22:41 OPV 7 completed Not Available [facility] 01/15/2011 05:22:41 Hib, unspecified formulation 8 completed Not Available [facility] 01/15/2011 05:22:41 OPV 1 completed Not Available [facility] 01/15/2011 05:22:41 MMR 8 completed Not Available [facility] 01/15/2011 05:22:41 varicella 9 completed Josselin Delgado PICK UP OPERATOR null, [facility] 10/22/2011 09:16:16 varicella 7 completed Josselin Delgado PICK UP OPERATOR blake, [facility] 10/22/2011 09:16:16 Past Encounters Encounter ID Performer Location Encounter Start Date Encounter Closed Date Diagnosis/Indication Diagnosis SNOMED-CT Code Diagnosis ICD10 Code Diagnosis Note [id number] FP, C, OFFICE [address] [place] [address] 10/16/2009 13:47:14 10/23/2009 09:08:52 [id number] , C, OFFICE [address] [place] [address] 10/19/2009 09:27:47 10/24/2009 14:53:53 [id number] FP, C, OFFICE [address] [place] [address] 11/14/2009 16:02:03 11/19/2009 12:37:17 [id number] FP, C, OFFICE [address] [place] [address] 05/09/2010 11:59:27 05/14/2010 14:40:16 [id number] Radiology , [facility] [address] [place] [address] 05/09/2010 12:29:44 05/10/2010 12:10:26 [id number] FP, C, OFFICE [address] [place] [address] 10/15/2010 14:47:34 10/15/2010 17:01:00 [id number] FP, E[facility], OFFICE [address] [facility] [place] [address] 10/21/2010 12:19:28 10/21/2010 12:40:45 [id number] Radiology , [facility] [address] [facility] [place] [address] 10/21/2010 16:00:47 10/22/2010 11:43:04 [id number] , [facility], OFFICE [address] [facility] [place] [address] 02/11/2011 14:58:14 02/12/2011 13:44:39 [id number] , [facility], OFFICE [address] [facility] [place] [address] 07/31/2011 11:29:28 07/31/2011 12:20:59 [id number] , [facility], OFFICE [address] [facility] [place] [address] 10/09/2011 11:55:33 10/09/2011 12:38:02 [id number] Radiology , [facility] [address] [facility] [place] [address] 10/09/2011 12:37:30 10/16/2011 15:17:15 [id number] [facility], OFFICE [address] [facility] [place] [address] 10/22/2011 08:49:37 10/22/2011 09:46:02 [id number] Jordan Pérez MD , [facility], OFFICE [address] [place] [address] 11/30/2011 11:19:16 12/01/2011 08:38:27 [id number] Jordan Miller MD , [facility], OFFICE [address] [facility] [place] [address] 12/01/2011 17:48:49 12/01/2011 18:14:22 [id number] Karen Barba , [facility], OFFICE [address] [facility] [place] [address] 6 12/03/2011 10:07:04 12/03/2011 12:27:17 [id number] Karlie Sainz , [facility], OFFICE [address] [facility] [place] [address] 12/05/2011 13:54:09 12/05/2011 15:44:40 [id number] Jordan Miller MD , [facility], OFFICE [address] [place] [address] 12/23/2011 08:52:32 12/24/2011 22:02:42 [id number] Kostas Gutierrez , [facility], OFFICE [address] [place] [address] 12/23/2011 09:21:32 12/23/2011 10:47:54 [id number] [facility], OFFICE [address] [place] [address] 04/26/2012 16:01:45 04/27/2012 11:02:22 [id number] Abbie Sullivan LPN , [facility], OFFICE [address] [place] [address] 07/14/2012 15:24:47 07/15/2012 06:36:18 [id number] , [facility], OFFICE [address] [place] [address] 10/20/2012 10:23:05 10/20/2012 11:55:35 Well child [id number] Counseling [id number] Examinatio n for population survey [id number] Abbie Sullivan LPN , [facility], OFFICE [address] [place] [address] 05/25/2013 15:25:31 05/25/2013 16:24:18 Dysmenorrhea [id number] Pt would like to go back to ortho-tric yclen to see if this helps other symptoms. Plan on follow-up in 2-3 months. Pain of breast [id number] May be related to control pill. Will change and follow-up in 2-3 months. Fatigue [id number] Will ch mark labwork to make sure no other reason for fatigue - may be related to OCP or sleep and school. Plan on follow-up in 2-3 months. [id number] ELVIA Villatoro , [facility], OFFICE [address] [place] [address] 6 07/15/2013 16:46:20 07/15/2013 17:24:58 Viral upper respiratory tract infection [id number] , [facility], OFFICE [address] [place] [address] 10/19/2013 13:51:14 10/19/2013 15:21:02 Well child [id number] Examinatio for population survey [id number] Thea Mccallum , [facility], OFFICE [address] [place] [address] 01/03/2014 15:28:06 01/03/2014 16:17:52 Dysmenorrhea [id number] Pt would like to try the implanon given that she is having issue rememberin g to take pills and she doesn't think she can make it in every 3 months. She would rather have the implanon than an IUD. [id number] Savannah Kevin , [facility], OFFICE [address] [place] [address] 03/20/2014 12:16:42 03/20/2014 12:41:35 Acute upper respiratory infection [id number] Educated patient that URI is a viral illness of the upper airways. It is not bacterial and does not benefit from antibiotic s. Average duration of URI is 7-10 days but in a recent trial, treatment at 7-10 days of illness with antibiotic s, intranasal steroids, or placebo did not alter natural history at 3 weeks. Recommende d symptomati c treatments including NSAIDS, semi-uprig ht sleep position, antihistam macrina at HS, limited course of nasal sympathomi metics and/or cough syrups, and nasal saline rinses with soft squeeze bottle or Neti pot. Return for fevers > 101 for 3 days, worsening sinus pain, or failure to resolve in 2-4 weeks. [id number] [facility], OFFICE [address] [place] [address] 08/07/2014 15:05:41 08/07/2014 15:54:04 Urinary tract infectious disease [id number] Will start Bactrim since she is significan tly uncomforta ble; lots of fluids; check urine culture since UA was equivocal; follow up as needed. Also addressed need for control: is interested in Nexplanon and given info re: getting it. Health Concerns Section Related Observation LastModified by Organization Detai ls LastModified Time None Recorded Concern Status LastModified by Organization Details LastModified Time None Recorded Advance Directives Directive None Recorded Payers Encounter Date Sequence Insurance Name Policy Number Policy Campbell Covered Member ID Campbell Member ID Guarantor Name 07/15/2013 1 [place]) [id number] [facility] [id number] Minerva Birchenough 10/19/2013 1 [place]) [id number] [facility]ai [facility] [place] [id number] Minerva Birchenough 01/03/2014 1 [place]) [id number] Sai [facility] [id number] Minerva Birchenough 03/20/2014 1 [place]) [id number] Sai [facility] [place] [id number] Minerva Birchenough 08/07/2014 1 [place]) [id number] Sai [facility] [id number] [facility] [place] Notes Date Note Type Note Provider Name and Address Organization Details Recorded Time 01/03/2014 text/html [facility] She has been on the pill; she was having trouble remembering to take it. She has never had nausea, lightheadedness, etc. with the pill. Pt is interested in the implanon - her friend has it. Pt isn't interested in the depo shot - pt feels like she wouldn't be able to get here every three months for the shot. Karen Barba [address] [place], [address], [facility] 01/03/2014 16:17:20 08/07/2014 text/html 3 days of urinar y urgency but only goes small amounts, and then has burning afterwards. New partner over the past couple of months. No fever or back pain. Shiloh Bernstein MD [address] [place], [address], [facility] 08/09/2014 11:43:28 OBGyn Episode No OBEpisode recorded.
[2024-06-07 17:13] LABS: Vitamin D 25-OH Total 35.1 ng/mL (>30)
== END 2024-06-07 13:51 | disposition home or self-care (01) ==
LOC: HO.LAB 13:50
PROVIDERS: PCP Internal Medicine; Visit Provider Internal Medicine
DX: Z00.00 Encounter for general adult medical examination without abnormal findings (principal); K62.5 Hemorrhage of anus and rectum; Z13.6 Encounter for screening for cardiovascular disorders
CPT/HCPCS: 36415; 80053; 80061; 82306; 83540; 85025

== ENCOUNTER 2024-09-11 16:20 | Emergency (ER) | payer OTHER, SELFPAY ==
--- NOTE | 2024-09-11 | ECG_ITS ---
Test Reason : chest pain Blood Pressure : */* mmHG Vent. Rate : 64 BPM Atrial Rate : 64 BPM P-R Int : 140 ms QRS Dur : 90 ms QT Int : 406 ms P-R-T Axes : 43 75 49 degrees QTcB Int : 418 ms Poor data quality, interpretation may be adversely affected Normal sinus rhythm Normal ECG No previous ECGs available Referred By: Generic ED Physician Electronically Signed By: FABRICIO EWING
--- NOTE | ~2024-09-11 | XR_ITS ---
CLINICAL HISTORY: shortness of breath Chest Radiographs, 2 views Comparison: None available Findings: No cardiomegaly. Normal mediastinal contours. No pneumothorax. No opacity. No pleural effusion. Normal upper abdomen. No acute fracture. Impression: No acute findings. This document has been electronically signed by: Preethi Holloway MD on 09/11/2024 17:37:28
[2024-09-11 16:43] VITALS: BP 131/87; PULSE 90; RESP 16; TEMP 36.9; O2SAT 99; BMI 25.5
--- NOTE | 2024-09-11 16:44 | ED_ITS ---
HPI - General Adult General Chief complaint: Upper Respiratory Symptoms Stated complaint: chest pain, flu like symptoms Time Seen by Provider: 09/11/24 19:25 Related Data Previous Rx's ?Medication ?Instructions ?Recorded benzonatate 200 mg capsule 200 mg PO TID PRN cough #10 caps 09/11/24 methocarbamol 750 mg tablet 1,500 mg (2 x 750 mg) PO B EDTIME 09/11/24 PRN pain #8 tabs Allergies Allergy/AdvReac Type Severity Reaction Status Date / Time No Known Allergies Allergy Verified 09/11/24 16:46 [facility] Social History Social History Alcohol intake: current Alcohol intake frequency: holidays/special occasions only Smoked in Last 30 Days: Yes Use of substances other than those prescribed or required for medical reasons: No Advance Directives: No Advance Directives Information Provided: No Do you have a plan to hurt others: No Plan Patient : No Physical Exam ED Vital Signs: Vital Signs - 24 hr 09/11/24 16:43 09/11/24 19:04 09/11/24 19:05 Temperature 98.4 F 98.0 F Pulse Rate 90 76 Respiratory Rate 16 18 Blood Pressure 131/87 131/80 Pulse Oximetry 99 99 99 Oxygen Delivery Method Room Air Room Air Room Air 09/11/24 20:31 Temperature 98 F Pulse Rate 70 Respiratory Rate 18 Blood Pressure 139/90 H Pulse Oximetry 99 Oxygen Delivery Method Room Air BMI result Body Mass Index 25.5 Course Course Course Narrative: Medical screening exam performed. Please refer to detailed history, exam, evaluation, and management by primary provider. 28-year-old female, history of tachycardia, exercise-induced asthma, presents with chest pain or shortness of breath. No tobacco, no marijuana, no drug use. Lung sounds clear at triage. Hemodynamically stable and afebrile. Check labs, EKG, imaging. Medications Administered Discontinued Medications Generic Name Dose Route Start Last Admin Trade Name Freq PRN Reason Stop Dose Admin Methocarbamol 1,500 mg 09/11/24 20:21 09/11/24 20:28 Methocarbamol 750 Mg Tablet PO 09/11/24 20:22 1,500 mg ONCE ONE Administration Medical Decision Making Lab Data 09/11/24 18:02 09/11/24 18:02 Labs: Lab Results 09/11/24 09/11/24 Range/Units 17:35 18:02 WBC 7.1 (4.8-10.8) X10*3/uL RBC 4.41 (4.20-5.50) X10*6/uL Hgb 14.1 (12.0-16.0) g/dl Hct 40.8 (37.0-47.0) % MCV 92.5 (80.0-98.0) fL MCH 32.0 (27.0-33.0) pg MCHC 34.6 (31.0-35.0) g/dl RDW 12.0 (11.0-16.0) % Plt Count 252 (160-400) X10*3/uL MPV 9.8 (9.4-12.3) fL Immature Gran % (Auto) 0.3 (0.0-0.4) % Neut % (Auto) 56.3 (45-73) % Lymph % (Auto) 33.8 (20-40) % [place] % (Auto) 7.2 (2-11) % Eos % (Auto) 2.0 (0-4) % Baso % (Auto) 0.4 (0-2) % Lymph # (Auto) 2.4 (1.2-4.9) X10*3/uL [place] # (Auto) 0.5 (0.1-1.2) X10*3/uL Eos # (Auto) 0.1 (0.0-0.4) X10*3/uL Baso # (Auto) 0.0 (0.0-0.2) X10*3/uL Abs Immat Gran (auto) 0.02 (0.00-0.03) X10*3/uL Absolute Neuts (auto) 4.0 (2.0-8.3) x10*3/uL Absolute Nucleated RBC 0.000 (0.0-0.012) X10*3/uL Nucleated RBC % (auto) 0.0 (0.0-0.2) /100WBC Sodium 142 (135-145) mmol/L Potassium 3.6 (3.3-5.1) mmol/L Chloride 105 (96-108) mmol/L Carbon Dioxide 28 (22-29) mmol/L Anion Gap 13 (12-20) BUN 13 (9-16) mg/dL Creatinine 0.83 (0.5-1.4) mg/dL Estim Creat Clear Calc 101.7 Estimated GFR > 60 Random Glucose 112 (60-115) mg/dL Calcium 9.7 (8.4-10.2) mg/dL Total Bilirubin 0.6 (0.0-1.0) mg/dL AST 24 (5-31) U/L ALT 26 (0-31) U/L Alkaline Phosphatase 75 (39-117) U/L Troponin I High Sens < 2.7 (<3.5-17.0) ng/L Total Protein 7.8 (6.5-8.0) g/dL Albumin 5.0 (3.5-5.0) g/dL Lipase 19 (8-78) U/L Beta HCG, Quant < 2 mIU/mL Influenza Type A (PCR) NEGATIVE (Negative) Influenza Type B (PCR) NEGATIVE (Negative) RSV RNA Qual (PCR) NEGATIVE (Negative) SARS-CoV-2 RNA (RT-PCR) NEGATIVE (Negative) Discharge Plan Discharge Clinical Impression: Viral infection Patient Disposition: Home, Self-Care Instructions: Viral Syndrome (ED) Additional Instructions: All of your screening labs were normal including a cardiac enzyme. There were no concerning changes on the EKG, your chest x-ray is clear, you do not have pneumonia. The viral panel was negative, you were screened for influenza RSV and COVID. You have a virus as the underlying cause for your congestion, chest discomfort and cough. Use the Tessalon Perles as needed for cough. Use your albuterol as needed for the cough. Use the methocarbamol as needed for your chest discomfort. You should also be using ibuprofen 600 mg taken every 6 hours with food, as the chest discomfort is related to inflammation. You can also use [id number] Mucinex per package instructions for chest congestion. Follow up with your primary care provider as needed. Prescriptions: New methocarbamol 750 mg tablet 1,500 mg PO BEDTIME PRN (Reason: pain) Qty: 8 0RF benzonatate 200 mg capsule 200 mg PO TID PRN (Reason: cough) Qty: 10 0RF Interventions: ED Discharge Assessment Last Done: 09/11/24 20:31 Discharge Date/Time: 09/11/24 20:36 Print Language: Eritrean
[2024-09-11 18:07] LABS: MANUAL DIFF FLAG NO
[2024-09-11 18:08] LABS: Hematocrit 40.8 % (37.0-47.0); Hemoglobin 14.1 g/dl (12.0-16.0); Imm Gran Abs Auto 0.02 X10*3/uL (0.00-0.03); Imm Gran Pct Auto 0.3 % (0.0-0.4); Lymphocytes Absolute Auto 2.4 X10*3/uL (1.2-4.9); Mean Corpuscular HGB Conc 34.6 g/dl (31.0-35.0); Mean Corpuscular Hemoglobin 32.0 pg (27.0-33.0); Mean Corpuscular Volume 92.5 fL (80.0-98.0); NRBC Abs Auto 0.000 X10*3/uL (0.0-0.012); NRBC Pct Auto 0.0 /100WBC (0.0-0.2); Platelet Count 252 X10*3/uL (160-400); Red Blood Count 4.41 X10*6/uL (4.20-5.50); White Blood Count 7.1 X10*3/uL (4.8-10.8)
[2024-09-11 18:27] LABS: Alanine Aminotransferase 26 U/L (0-31); Albumin Level 5.0 g/dL (3.5-5.0); Alkaline Phosphatase 75 U/L (39-117); Anion Gap 13 (12-20); Aspartate Amino Transferase 24 U/L (5-31); Blood Urea Nitrogen 13 mg/dL (9-16); Calcium 9.7 mg/dL (8.4-10.2); Carbon Dioxide 28 mmol/L (22-29); Chloride 105 mmol/L (96-108); Creatinine Clr Calc Pharmacy 101.7; Estimated Glomerular Filt Rate > 60; Lipase 19 U/L (8-78); Potassium 3.6 mmol/L (3.3-5.1); Sodium 142 mmol/L (135-145); Total Protein 7.8 g/dL (6.5-8.0)
[2024-09-11 18:31] LABS: Troponin-I High Sensitivity < 2.7 ng/L (<3.5-17.0)
[2024-09-11 18:35] LABS: Resp Syncy Virus RNA Qual PCR NEGATIVE (Negative); SARS COV2 PCR INHOUSE NEGATIVE (Negative)
[2024-09-11 19:04] VITALS: BP 131/80; PULSE 76; RESP 18; TEMP 36.7; O2SAT 99
[2024-09-11 19:05] VITALS: O2SAT 99
--- NOTE | 2024-09-11 20:22 | ED.GENADULT ---
HPI - General Adult General Chief complaint: Upper Respiratory Symptoms Stated complaint: chest pain, flu like symptoms Time Seen by Provider: 09/11/24 19:25 Source: patient Limitations: no limitations History of Present Illness ED Provider: Vika Yeh PA-C HPI narrative: 28-year-old female with a history of asthma presents with cough and cold symptoms x4 days. Associated nasal congestion, chest congestion expelling yellow sputum. The cough is repetitive and bronchospasm like at times, worse at night. Associated central chest tightness, that has been quite bothersome. Denies fever or sick contacts with similar symptoms. Related Data Previous Rx's ?Medication ?Instructions ?Recorded benzonatate 200 mg capsule 200 mg PO TID PRN cough #10 caps 09/11/24 methocarbamol 750 mg tablet 1,500 mg (2 x 750 mg) PO BEDTIME 09/11/24 PRN pain #8 tabs Allergies Allergy/AdvReac Type Severity Reaction Status Date / Time No Known Allergies Allergy Verified 09/11/24 16:46 Review of Systems Review of Systems: Yes all other systems are reviewed and are negative Constitutional: Constitutional: Denies fatigue and Denies fever(s) ENT: Reports nasal congestion Cardiovascular: Cardiovascular: Reports chest pain and Denies dyspnea Respiratory: Respiratory: Reports chest congestion, Reports cough, Denies dyspnea and Denies wheezing Endocrine: Endocrine: Denies fatigue Allergic/Immunologic: Allergic/Immunologic: Denies wheezing PMFSH Past Medical History Attestation statement: The following information was validated with the patient. Social History Social History Alcohol intake: current Alcohol intake frequency: holidays/special occasions only Smoked in Last 30 Days: Yes Use of substances other than those prescribed or required for medical reasons: No Advance Directives: No Advance Directives Information Provided: No Do you have a plan to hurt others: No Plan Patient : No Physical Exam ED Vital Signs: Vital Signs - 24 hr 09/11/24 16:43 09/11/24 19:04 09/11/24 19:05 Temperature 98.4 F 98.0 F Pulse Rate 90 76 Respiratory Rate 16 18 Blood Pressure 131/87 131/80 Pulse Oximetry 99 99 99 Oxygen Delivery Method Room Air Room Air Room Air 09/11/24 20:31 Temperature 98 F Pulse Rate 70 Respiratory Rate 18 Blood Pressure 139/90 H Pulse Oximetry 99 Oxygen Delivery Method Room Air BMI result Body Mass Index 25.5 Const Other: Alert well-appearing Orientation/consciousness: patient oriented x3 Resp Other: Nonlabored respirations, lungs clear to auscultation no wheezing Cardio Other: Normal peripheral perfusion Skin Other: Warm dry no rash Neuro General: patient oriented x3, gait normal, no focal motor deficits and CN's II-XI intact bilaterally Psych Other: Cooperative Medications Administered Discontinued Medications Generic Name Dose Route Start Last Admin Trade Name Freq PRN Reason Stop Dose Admin Methocarbamol 1,500 mg 09/11/24 20:21 09/11/24 20:28 Methocarbamol 750 Mg Tablet PO 09/11/24 20:22 1,500 mg ONCE ONE Administration Medical Decision Making Medical Decision Making MDM Narrative: 28-year-old female with a history of asthma presents with cough and cold symptoms x4 days. Associated chest congestion expelling yellow sputum. The cough is repetitive and bronchospasm like at times, worse at night. Associated central chest tightness, that has been quite bothersome. Denies fever or sick contacts with similar symptoms. Problem: Asthma History: Per patient I have considered the following differential diagnoses: ACS, costochondritis, pneumonia, bronchitis, asthma exacerbation, viral syndrome, seasonal allergies Plan: ACS was considered, however the patient has no risk factors for coronary artery disease, her heart score is 0. Screening labs including a cardiac enzymes EKG and chest x-ray were obtained. Viral panel obtained it is negative. The patient has yet another virus causing your symptoms. This is also not asthma exacerbation, she has no wheezing. At best she may have a bronchospasm type cough. She has an inhaler at home. We will send with symptomatic care. I have independently reviewed the following tests: Labs: No leukocytosis, not anemic, no electrolyte abnormality, troponin negative, not , viral panel negative EKG: Normal sinus rhythm, rate of 64, no ischemic changes no ectopy QTC 418 Chest x-ray:No cardiomegaly. Normal mediastinal contours. No pneumothorax. No opacity. No pleural effusion. Normal upper abdomen. No acute fracture. Impression: No acute findings. Lab Data 09/11/24 18:02 09/11/24 18:02 Labs: Lab Results 09/11/24 09/11/24 Range/Units 17:35 18:02 WBC 7.1 (4.8-10.8) X10*3/uL RBC 4.41 (4.20-5.50) X10*6/uL Hgb 14.1 (12.0-16.0) g/dl Hct 40.8 (37.0-47.0) % MCV 92.5 (80.0-98.0) fL MCH 32.0 (27.0-33.0) pg MCHC 34.6 (31.0-35.0) g/dl RDW 12.0 (11.0-16.0) % Plt Count 252 (160-400) X10*3/uL MPV 9.8 (9.4-12.3) fL Immature Gran % (Auto) 0.3 (0.0-0.4) % Neut % (Auto) 56.3 (45-73) % Lymph % (Auto) 33.8 (20-40) % [place] % (Auto) 7.2 (2-11) % Eos % (Auto) 2.0 (0-4) % Baso % (Auto) 0.4 (0-2) % Lymph # (Auto) 2.4 (1.2-4.9) X10*3/uL [place] # (Auto) 0.5 (0.1-1.2) X10*3/uL Eos # (Auto) 0.1 (0.0-0.4) X10*3/uL Baso # (Auto) 0.0 (0.0-0.2) X10*3/uL Abs Immat Gran (auto) 0.02 (0.00-0.03) X10*3/uL Absolute Neuts (auto) 4.0 (2.0-8.3) x10*3/uL Absolute Nucleated RBC 0.000 (0.0-0.012) X10*3/uL Nucleated RBC % (auto) 0.0 (0.0-0.2) /100WBC Sodium 142 (135-145) mmol/L Potassium 3.6 (3.3-5.1) mmol/L Chloride 105 (96-108) mmol/L Carbon Dioxide 28 (22-29) mmol/L Anion Gap 13 (12-20) BUN 13 (9-16) mg/dL Creatinine 0.83 (0.5-1.4) mg/dL Estim Creat Clear Calc 101.7 Estimated GFR > 60 Random Glucose 112 (60-115) mg/dL Calcium 9.7 (8.4-10.2) mg/dL Total Bilirubin 0.6 (0.0-1.0) mg/dL AST 24 (5-31) U/L ALT 26 (0-31) U/L Alkaline Phosphatase 75 (39-117) U/L Troponin I High Sens < 2.7 (<3.5-17.0) ng/L Total Protein 7.8 (6.5-8.0) g/dL Albumin 5.0 (3.5-5.0) g/dL Lipase 19 (8-78) U/L Beta HCG, Quant < 2 mIU/mL Influenza Type A (PCR) NEGATIVE (Negative) Influenza Type B (PCR) NEGATIVE (Negative) RSV RNA Qual (PCR) NEGATIVE (Negative) SARS-CoV-2 RNA (RT-PCR) NEGATIVE (Negative) Discharge Plan Discharge Clinical Impression: Viral infection Patient Disposition: Home, Self-Care Instructions: Viral Syndrome (ED) Additional Instructions: All of your screening labs were normal including a cardiac enzyme. There were no concerning changes on the EKG, your chest x-ray is clear, you do not have pneumonia. The viral panel was negative, you were screened for influenza RSV and COVID. You have a virus as the underlying cause for your congestion, chest discomfort and cough. Use the Tessalon Perles as needed for cough. Use your albuterol as needed for the cough. Use the methocarbamol as needed for your chest discomfort. You should also be using ibuprofen 600 mg taken every 6 hours with food, as the chest discomfort is related to inflammation. You can also use [id number] Mucinex per package instructions for chest congestion. Follow up with your primary care provider as needed. Prescriptions: New methocarbamol 750 mg tablet 1,500 mg PO BEDTIME PRN (Reason: pain) Qty: 8 0RF benzonatate 200 mg capsule 200 mg PO TID PRN (Reason: cough) Qty: 10 0RF Interventions: ED Discharge Assessment Last Done: 09/11/24 20:31 Discharge Date/Time: 09/11/24 20:36 Print Language: Swedish
[2024-09-11 20:31] VITALS: BP 139/90; PULSE 70; RESP 18; TEMP 36.6; O2SAT 99
== END 2024-09-11 20:36 | disposition home or self-care (01) ==
PROVIDERS: Physician Assistant; Emergency Provider Emergency Medicine; PCP Internal Medicine
DX: B34.9 Viral infection, unspecified (principal); R07.89 Other chest pain; R09.81 Nasal congestion; R05.9 Cough, unspecified; R09.89 Other specified symptoms and signs involving the circulatory and respiratory systems; R10.2 Pelvic and perineal pain; Z03.818 Encounter for observation for suspected exposure to other biological agents ruled out
CPT/HCPCS: 71046; 80053; 83690; 84484; 84702; 85025; 87637; 93005; 99283; 99284

== ENCOUNTER → 2024-09-11 16:32 | Outpatient (BNV) | payer OTHER, SELFPAY | PROVIDERS: Emergency Provider Emergency Medicine; PCP Internal Medicine; Visit Provider Internal Medicine | DX: R07.89 Other chest pain (principal) | CPT/HCPCS: 93010 ==

== ENCOUNTER → 2024-09-11 16:47 | Outpatient (BNV) | payer OTHER, SELFPAY | PROVIDERS: PCP Internal Medicine; Visit Provider Radiology Diagnostic Radiology | DX: R06.02 Shortness of breath (principal) | CPT/HCPCS: 71046 ==

== ENCOUNTER 2025-02-01 16:20 | Outpatient (REF) | payer OTHER, SELFPAY ==
[2025-02-01 18:24] LABS: MANUAL DIFF FLAG NO
--- OUTSIDE RECORDS SUMMARY | 2025-02-01 18:56 | XMS_ITS | Encounter Summary ---
Author Organization [facility] Address [address] [place] [address] Phone Care Team Providers Care Fiberglass Auto Body Repairer Name Role Phone Marco Rick DO Unavailable Marco Rick DO Primary Care Provider [phone] Encounter Details Date Type Department Care Team (Late st Contact Info) Description 01/18/2025 Telephone [facility] [address] [place] [address] Prem Garcia MD [address] [address] [email or web address] Social History Tobacco Use Types Packs/Day Years Used Date Smoking Tobacco: Never Smokeless Tobacco: Never Alcohol Use Standard Drinks/Week Comments Yes 0 (1 standard drink = 0.6 oz pur e alcohol) Education Answer Date Recorded Are you interested in more education? Not on kelly e 06/27/2022 Are you concerned about learning? Not on file 06/27/2022 No 06/27/2022 No 06/27/2022 Digital Access Answer Date Recorded No 07/25/2022 No 07/25/2022 Reliable internet access at home? Not on file 07/25/2022 Device with a working camera? Not on file Comments No Sex and Gender Information Value Date Recorded Sex Assigned at Not on file Legal Sex Female 8:51 PM EDT Gender Identity Not on file Sexual Orientation Not on file documented as of this encounter Progress Notes * Naomie Ko 01/18/2025 1:39 PM EST Pt called to schedule colonoscopy, had consult on 11/28/24. Please call documented in this encounter Plan of Treatment Scheduled Procedures Name Priority Associated Diagnoses Date/Ti me COLONOSCOPY Blood in stool documented as of this encounter Visit Diagnoses Not on filedocumented in this encounter Care Teams Fib[employer] Auto Body Repairer Relationship Specialty Start Date End Date Marco Rick DO [email or web address] PCP - General Internal Medicine 10/21/17 Marco Rick DO Internal Medicine 10/21/17 documented as of this encounter Additional Source Comments The information contained in this document represents components of the legal health record. It is not the complete legal health record.[facility]
--- OUTSIDE RECORDS SUMMARY | 2025-02-01 18:56 | XMS_ITS | Clinical Summary ---
Author Organization [facility] Prior to 07/30/[address] [place] [id number] Care Team Providers Care Image Editor Name Role Phone Unavailable Primary Care Provider [...] 94 08/02/2016 5:15 AM EDT Temperature 37.1 C (98.7 F) 08/02/2016 5:15 AM EDT Respiratory Rate 19 08/02/2016 5:15 AM EDT Oxygen Saturation 95% 08/02/2016 5:15 AM EDT Inhaled Oxygen Concentration - - Weight - - Height - - Body Mass Index - - Plan of Treatment Not on file
--- OUTSIDE RECORDS SUMMARY | 2025-02-01 18:56 | XMS_ITS | Clinical Summary ---
Author Organization [facility] [address] [place] [address] [place] [phone] Phone Care Team Providers Care Construction Assistant Name Role Phone Marco Rick DO Primary Care Provider [phone] Allergies No known active allergies Medications hydrOXYzine [...] use. She will return in 6 weeks. Surgical History Surgery Date Site/Laterality Comments OTHER [...] 5 Years) and At-Risk Patients (6 to 49 Years) (1 of 2 - PCV) 12/25/2014 Social Influencers of Health Screening 12/08/2023 Depression Screening 03/02/2024 COVID-19 Vaccine (3 - season) 2024 08/07/2020, 07/17/2020 Influenza Vaccine (#1) 2024 , 05/12/2024, 02/09/2020, Additional history exists DTaP,Tdap,and Td Vaccines (8 - Td or Tdap) 11/14/2026 11/14/2016, 10/24/2008, 01/04/2001, Additional history exists Cervical Cancer Screening: Pap Smear 11/16/2026 11/17/2023, 11/17/2023 RSV Immunization Adult Patients (1 - 1-dose 75+ series) 12/25/2070 Hepatitis B Vaccines Completed 09/28/1996, 02/04/1996, 1995 HIB Vaccines Completed 04/05/1997, 06/01, 04/27/1996, Additional history exists MMR Vaccines Completed 02/19/2000, 04/05/1997 IPV Vaccines Completed 01/04/2001, 06/01, 04/27/1996, Additional history exists Varicella Vaccines Completed 10/24/2008, 12/28/1996 Meningococcal ACWY Vaccine Aged Out 10/26/2015 N o longer eligible based on patient's age to complete this topic HPV Vaccines Completed 09/10/2020, 03/0 04/2020, 03/27/2020 HIV Screening Completed 11/17/2023 Hepatitis C Screening Completed 11/17/2023 Hepatitis A Vaccines Aged Out No long er eligible based on patient's age to complete this topic Meningococcal B Vaccine Aged Out No l onger eligible based on patient's age to complete this topic RSV Immunization Patients Under 20 months Aged Out No longer eligible based on patient's age to complete this topic Procedures Procedure Name Priority Date/Time Associated Diagnosis Comments HEPATITIS C SCREENING Routine 11/17/2023 PAP SMEAR Routine 11/17/2023 from Last 3 Months or Most Recently Relevant to Health Maintenance Results * Hepatitis C Screening (11/17/2023) Hepatitis C Screening abstracted [facility] Provider MD HEALTH MAINTENANCE Final Result * Pap Smear (11/17/2023) Pap smear negative interpretation abstracted [facility] Provider MD HEALTH MAINTENANCE Final Result from Last 3 Months or Most Recently Relevant to Health Maintenance Insurance [facility] Care Teams Construction Assistant Relationship Specialty Start Date End Date Marco Rick DO [address] [facility] [address] [place], [place] PCP - General 09/09/23
--- OUTSIDE RECORDS SUMMARY | 2025-02-01 18:56 | XMS_ITS | Data Portability ---
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 JACKER) MDM MODERATE MUST MEET 2 OUT OF [...] THAT IS COVERED Not available 03/15/2021 11:22:12 02/01/2025 02/01/2025 [id number] [place] [id number] (PRIZE JACKER) MDM MODERATE MUST MEET 2 OUT OF [...] EACH ELEMENT THAT IS COVERED Not available 02/01/2025 16:11:14 Plan of Treatment Reminders Order Date Submit Date Provider Last Modified By Organization Details Last Modified Time Details Appointments NEW PROBLEM 15 2024 03:45P M DR BANG Not available Not available Not available Lab CBC w/ auto diff 2024 025 [facility], [address] [place] [address], [id number], 02/01/2025 16:20:43 iron + TIBC + ferritin, serum 2024 025 [facility], [address] [place] [address], [address], 02/01/2025 16:20:42 vitamin B12, serum 2024 025 [facility], [address] [place] [address], [address], 02/01/2025 16:20:42 vitamin D, 25-hydrox y, total, serum 2024 025 [facility], [address] [place] [address], [address], 02/01/2025 16:20:42 TSH + free T4, serum 2024 025 [facility], [address] [place] [address], [address], 02/01/2025 16:20:43 CBC w/ auto diff 2024 025 [facility], [address] [place] [address], [address], 05/18/2024 12:10:31 CMP, serum or plasma 2024 025 [facility], [address] [place] [address], [place], [address], 06/08/2024 13:41:55 iron + TIBC + ferritin, serum 2024 025 [facility], [address] [place] [address], [place], [address], 06/08/2024 13:41:55 lipid panel, blood 2024 025 [facility], [address] [facility], [place], [address], 06/08/2024 13:41:55 vitamin D, 25-hydrox y, total, serum 2024 025 [facility], [address] [place] [address], [address], 05/18/2024 12:10:31 Referral gastroent erologist referral - pt with recurrent episodes of rectal bleeding 2024 025 susie Mcneil APRN, [address] [facility] [place], [place], [address], 05/31/2024 08:29:52 Procedures None recorded. Surgeries None recorded. Imaging None recorded. Medication Orders hydrocort isone 2.5 % topical cream with perineal applicato r 2024 025 [facility] #[id number], [address] [place] [address], [address], 02/01/2025 16:03:51 azithromy jorge 250 mg tablet [email or web address]/[facility]armacy #0828, [address] [place] [address], [address], 02/01/2025 16:03:29 Guaifenes in AC 10 mg-100 mg/5 mL oral liquid 2021 022 [facility]armacy #0831, [address] [place], [address], 04/25/2022 08:17:33 Diflucan 150 mg tablet 2020 021 [facility]acy #0859, [address] [place], [address], 04/25/2022 15:48:34 trazodone 50 mg tablet 2020 021 [id number] [address] [place], [address], 04/25/2022 15:51:15 Patient TargetsNo targets recorded. 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 [email or web address] Not Available 2022 13:21:44 03/30/19 24 03/29/2023 MRI, ankle + foot, w/o contr ast No observ ation record ed. [facility] [address] [facility], [place], [address], 05/08/2023 09:40:59 09/12/19 25 09/11/2024 XR, chest , 2 view No observ ation record ed. [email or web address] [facility] (Medical Records) [address] [facility], [place], [address], 09/12/2024 08:23:12 Result Notes None recorded. Problems Name Problem SNOMED Code Status Onset Date Resolution Date Notes Provider Name and Address Organization Details Recorded Time Anxiety 47178594 Active 2017 Belgica lozano [facility] 5 12:13:39 Asthma 555726321 Active 2019 Marco Bang, DO [address] [place] [address], [address], [facility] 0 15:01:58 At increased risk for suicide 359265097 Active 2019 Belgica lozano [facility] 5 12:13:39 Candidias is of vagina 17447663 Active 2021 Belgica loazno [facility] 5 12:13:45 Bacterial vaginosis 995459017 Active 2021 Belgica lozano [facility] 5 12:13:45 Pain in left foot 026289605360 107 Active 2022 Belgica lozano [facility] 5 12:13:45 Acute urinary tract infection 627268709 Active 2022 Belgica lozano [facility] 5 12:13:45 Left Achilles tendiniti s 816080348857 102 Active 2023 Belgica lozano [facility] 5 12:13:45 Painless rectal bleeding 208339919 Active 2024 Marco Bang, DO [address] [place], [address], [facility] 5 11:58:51 Hemorrhoi ds 97503309 Active 2024 Marco Caldwell Merline, DO [address] [place], [address], [facility] 5 12:02:34 Acute infective bronchiti s 349287894 Active 2024 [facility] [address] [place], [address], [facility] 5 12:22:36 Fatigue 90051262 Active 2024 Marco EarlRajat Bang, DO [address] [place], [address], [facility] 5 16:15:12 Problem Notes None recorded. Medical Equipment None Reported. [...] Available Not Available prednisone 10 mg tablet 4 tabs x 3 days3 tabs x 3 days2 tabs x 3 days1 tab x 3 days 11/09 completed Not Available Not Available Not Available trazodone 50 mg tablet TAKE 1 TABLET BY MOUTH EVERY DAY 04/25 completed Not Available Not Available Not Available azithromyci n 250 mg tablet TAKE 2 TABLETS BY MOUTH TODAY, THEN TAKE 1 TABLET DAILY FOR 4 DAYS DIRECTED 02/01 completed Not Available Not Available Not Available [...] AREA 2 TO 4 TIMES A DAY 02/01 completed Not Available Not Available Not Available lorazepam 0.5 mg tablet TAKE 1 [...] completed Not Available Not Available Not Available methylpredn isolone 4 mg tablets in a dose pack TAKE 6 TABLETS ON DAY 1 DIRECTED ON PACKAGE AND DECREASE BY 1 TAB EACH DAY FOR A TOTAL OF 6 DAYS 02/01 completed Not Available Not Available Not Available [...] mass index (BMI) Body weight Oxygen saturation Heart rate Systolic And Diastolic Provider Name and Address Organization Details Last Updated DateTime 3 170.18 cm 24.7 kg/m2 55329.1 6 g 98 % 90 /min 124/72 mm[Hg] [facility] 3 15:52:19 Date Recorded Body height Body mass index (BMI) Body weight Heart rate Oxygen saturation Systolic And Diastolic Provider Name and Address Organization Details Last Updated DateTime 5 170.18 cm 26.2 kg/m2 72369.7 2 g 141 /min 98 % 120/80 mm[Hg] Belgica Caraballo [facility] 5 11:39:39 Date Recorded Body height Body mass index (BMI) Body weight Oxygen saturation Heart rate Systolic And Diastolic Provider Name and Address Organization Details Last Updated DateTime 5 170.18 cm 27.1 kg/m2 07476.2 g 98 % 79 /min 108/72 mm[Hg] ASIAEarl PEREZ [facility] 5 16:06:38 Social History Question Answer Notes LastModified by Organizat ion Details LastModified Time Tobacco Smoking Status Never Smoker Not Available [employer] 01/03/2020 03:36:23 What Was The Date Of Your Most Recent Tobacco Screening? 02/01/2025 [email or web address] Information not available 02/01/2025 Sex: Unknown Functional Status None recorded. Mental Status None recorded. Family History Nothing Reported. Medical History No medical history recorded. Gynecological HistoryNo gynecological history recorded. Obstetrics History GPAL:G 0 P 0 0 0 0 Immunizations Vaccine Type Date Status Note Provider Nam e and Address Organization Details Recorded Time MMR 02/19/2000 miguel lozano [facility] 12/04/2020 14:14:09 MMR 04/05/1997 miguel lozano [facility] 12/04/2020 14:14:19 varicella 10/24/2008 miguel lozano [facility] 12/04/2020 14:14:37 varicella 12/28/1996 miguel lozano [facility] 12/04/2020 14:14:41 Hep B, adolescent or pediatric 09/28/1996 miguel lozano [facility] 12/04/2020 14:15:03 Hep B, adolescent or pediatric 02/04/1996 miguel lozano [facility] 12/04/2020 14:15:09 Hep B, adolescent or pediatric 1995 miguel lozano [facility] 12/04/2020 14:15:14 Tdap 10/24/2008 miguel lozano [facility] 12/04/2020 14:15:28 COVID-19, mRNA, LNP-S, PF, 30 mcg/0.3 mL dose 07/17/2020 completed Batsheva lozano [facility] 04/25/2022 08:18:26 COVID-19, mRNA, LNP-S, PF, 30 mcg/0.3 mL dose 08/07/2020 completed Batsheva lozano [facility] 04/25/2022 08:18:33 influenza, unspecified formulation 02/09/2020 completed Batsheva lozano, [facility] 04/25/2022 08:18:55 influenza, unspecified formulation 05/14/2024 completed Marlo lozano [facility] 05/16/2024 08:27:13 Past Encounters Encounter ID Performer Location Encounter Start Date Encounter Closed Date Diagnosis/Indication Diagnosis SNOMED-CT Code Diagnosis ICD10 Code Diagnosis IMO Codes Diagnosis Note [id number] [address] 09/16/2017 14:46:36 09/17/2017 16:14:25 Contact dermatitis 00595099 L25.9 finish pred. as prescribed Anxiety 43921433 F41.9 symptoms will improve when off prednisone , not chronic Acne 98169325 L70.9 see if resolves with cessation of prednisone [id number] Marco Bang [address] [address] 12/31/2018 14:48:29 12/31/2018 15:15:50 Fatigue 77116156 R53.83 long discussion [id number] Marco Bang [address] [address] 03/30/2019 14:17:55 03/30/2019 14:51:15 Active or passive immunization 864391270 Z23 Anxiety 19098430 F41.9 will change to duloxetine 60 stop fluoxetine will decrease the wellbutrin to 150 for now and see how this plays out [id number] Marco Bang DO [facility] [address] [facility],[place] [address] 08/02/2019 14:40:03 08/02/2019 15:09:03 Asthma 101974545 J45.909 using inhaler more with activities Fractured nasal bones 26 6484661 S02.2XXA Deviated nasal septum 12 2607021 J34.2 will refer to ent 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 [id number] Marco Bang [facility] [address] [facility],[place] [address] 11/21/2019 09:34:17 11/21/2019 10:00:48 Tuberculosis screening 532000836 Z11.1 [id number] Marco Bang [facility] [address] [facility],[place] [address] 11/23/2019 09:52:14 11/23/2019 10:27:53 Tuberculosis screening 565173840 Z11.1 [id number] Marco Bang [facility] [address] [facility] [facility] [place] [address] 02/13/2020 08:47:09 02/13/2020 15:46:32 Suicide attempt 18739749 T14.91XD not necessaril y a true suicide attempt but will document in chart in case Tachycardia 7436972 R00. 0 seeing cardio tomorrow for fu with holter and scheduling echo Anxiety 13436621 F41.9 following with psychiatry [id number] Marco Bang [facility] [address] [facility],[place] [address] 06/26/2020 09:15:20 06/26/2020 16:53:08 Candidiasis of vagina 99926693 B37.3 yeast infection with pruritis and increased discharge Anxiety 02731155 F41.9 following with psychiatry stopped medication s stable per patient [id number] Marco Bang [facility] [address] [facility],[place] [address] 12/18/2020 08:34:43 12/18/2020 15:04:49 Anxiety 46605368 F41.1 following with psychiatry stopped medication s stable per patient Insomnia 811760778 G47.0 9 will trial on trazodone for sleep related to increased anxiety Candidal vulvovaginitis 10358495 B37.3 will give the patient diflucan for current yeast infection [id number] Marco Bang [facility] [address] [facility] [address] 03/15/2021 09:12:47 03/19/2021 11:23:48 Asthmatic bronchitis 562643723 J45.909 Asthma 266300235 J45.90 9 using inhaler more with activities Anxiety 74378733 F41.1 will change to duloxetine 60 will decrease the wellbutrin to 150 for now and see how this plays out [id number] Marco Bang [facility] [address] [facility] [address] 04/25/2022 15:38:57 04/25/2022 16:17:03 Asthma 947032170 J45.20 stable Anxiety 12012278 F41.1 stable per patient [id number] Marco Bang [facility] [address] [facility],[place] [address] 05/18/2024 11:30:08 05/18/2024 13:30:45 Active or passive immunization 701465653 Z23 Adult heal th examination 473056421 Z00.00 Asthma 161022828 J45.20 using inhaler more with activities Painless r ectal bleeding 548461817 K62.5 Hemorrhoids 10081058 K64 .9 [id number] Marco Bang [facility] [address] [facility],[place] [address] 02/01/2025 15:58:14 02/01/2025 16:29:03 Depression screening 081368637 Z13.31 neg Asthma 904110248 J45.20 using inhaler more with activities Painless r ectal bleeding 917807580 K62.5 STILL waiting to get colonoscop y in the meantime will k lab Fatigue 46607055 R53.82 002785 long discussion Health Concerns Section Related Observation LastModified by Organization Detai ls LastModified Time None Recorded Concern Status LastModified by Organization Details LastModified Time None Recorded Advance Directives Directive None Recorded Payers Insurance Date Sequence Insurance Name Policy Number Policy Campbell Covered Member ID Campbell Member ID Guarantor Name 02/01/2025 1 [place] [facility] (HMO) [id number] [facility] [place] 2] [id number] [facility] 11/23/2020 1 [place] [id number] [facility] [place] 2] [id number] [facility] 05/17/2024 1 [place] [facility] [id number] [facility] 02/01/2025 1 [employer] [facility] [place] 2] [id number] [facility] Notes Date Note Type Note Provider Name a mt Address Organization Details Recorded Time 1 text/html ROS as noted in the HPI medication tele-med anxiety: the patient states she [...] need to be made [facility] [address] [place], [address], [facility] 12/18/2020 11:48:46 2 text/html ROS as noted in the HPI patient is evaluated via tele/video assessment per patient consentduring current pandemic began as a negin congest last week and has been having sore throat and coughstates has been having mult testing for covid and is negativedid have a negative pcrand recently has gotten worse Marco Bang DO [address] [place], [address], [facility] 03/15/2021 11:27:46 3 text/html ROS as noted in the HPI medication check asthma: stable with the albuterolthe patient uses it for cold weather and for exerciseno new night-time symptomsstable, doing better with the inhaler on board anxiety: doing really well on the bupropionalso helped her lose weight which she is pleased with her progress vital were stable [facility] [address] [place], [address], [facility] 04/25/2022 16:15:10 5 text/html Annual WellnessReported by PatientSocial/Behavio ral HistoryFor diet and nutrition, patient reportshealthy diet. For fracture risk, patient reportsno history of fractures,no recent explained fracture,no sudden unexplained fractures, andno previous musculoskeletal injuries. For physical activity, patient reportsexercises on a regular basis,recent increase in physical activity, andgood physical condition. For additional lifestyle factors, patient reportsno tobacco use,no alcohol intake, andstopped drinking alcohol.Mental Status:For depression risk, patient reportsnever feels sad, empty, or tearful,no loss of interest in activities,no significant changes in weight,no sleep disturbances or insomnia,no agitation,no loss of energy,no feelings of worthlessness or guilt,no thoughts of suicide,no history of depression, andno history of mood disorders.Functional AbilityFor hearing, patient reportsno loss of hearing. For vision, patient reportsno vision problems.ROS as noted in the HPI Marco Bang DO [address] [place], [address], [facility] 05/18/2024 12:05:43 5 text/html Care Management - AsthmaReported by PatientROS as noted in the HPI Marco Bang DO [address] [place], [address], [facility] 02/01/2025 16:17:36 OBGyn Episode No OBEpisode recorded.
--- OUTSIDE RECORDS SUMMARY | 2025-02-01 18:56 | XMS_ITS | Encounter Summary ---
Author Organization [facility] Address [address] [facility] [address] [place] [phone] Phone Care Team Providers Care Benefits Director Name Role Phone Bigda, Marco A DO Unavailable Bigda, Marco A DO Primary Care Provider [phone] Bigda, Marco A DO Unavailable Encounter Details Date Type Department Care Team (Latest Contact Info) Description 09/26/2019 Transcribe Orders Virtual Department [address] [place] [address] Kiara Agarwal PA [address] [facility] [place] [address] Encounter for laboratory testing for COVID-19 virus (Primary Dx) Social History Tobacco Use Types Packs/Day Years Used Date Smoking Tobacco: Never Smokeless Tobacco: Never Alcohol Use Standard Drinks/Week Comments Yes 0 (1 standard drink = 0.6 oz pur e alcohol) Comments No Sex and Gender Information Value Date Recorded Sex Assigned at Not on file Legal Sex Female 8:51 PM EDT Gender Identity Not on file Sexual Orientation Not on file documented as of this encounter Plan of Treatment Scheduled Procedures Name Priority Associated Diagnoses Date/Ti me COLONOSCOPY Blood in stool documented as of this encounter Results * COVID-19 PCR Order (10/08/2019 1:19 PM EDT) Specimen Source 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) [facility] COVID Testing Status MGLAB [facility] Other 10/08/2019 1:19 PM EDT 10/08/2019 1:56 PM EDT Kiara MAZA LAB GENERAL ORDERABLES Hansa burnette Result [facility] [address] [place] [address] documented in this encounter Visit Diagnoses Diagnosis Encounter for laboratory testing for COVID-19 virus- Primary documented in this encounter Additional Health Concerns Infection Onset Date Last Indicated Resolved Time CoV-Risk 09/26/2019 10/08/2019 10/10/2019 4:56 AM EDT documented as of this encounter Care Teams Benefits Director Relationship Specialty Start Date End Date Marco Rick DO PCP - General Internal Medicine 10/21/17 Marco Rick DO Internal Medicine 10/21/17 Marco Rick DO [address] [place] [address] Insurance Assigned Provider 06/05/24 09/10/24 documented as of this encounter Additional Source Comments The information contained in this document represents components of the legal health record. It is not the complete legal health record.[facility]
--- OUTSIDE RECORDS SUMMARY | 2025-02-01 18:56 | XMS_ITS | Continuity of Care Document ---
Author Organization [facility], [facility] Address [address] [facility] [place] [address] [place] [address] Assessment Encounter Date Assessment Date Assessment LastModified by Organization Details LastModified Time 02/01/2025 02/01/2025 [id number] [place] [id number] (MANA[facility]) MDM MODERATE MUST MEET 2 OUT OF [...] Lab CBC w/ auto diff 2024 025 [facility], [address] [place] [address], [place], [address], 02/01/2025 16:20:43 iron + TIBC + ferritin , serum 2024 025 [facility], [address] [place] [address], [place], [address], 02/01/2025 16:20:42 vitamin B12, serum 2024 025 [facility], [address] [place] [address], [id number], 02/01/2025 16:20:42 vitamin D, 25-hydro xy, total, serum 2024 025 [facility], [address] [place] [address], [id number], 02/01/2025 16:20:42 TSH + free T4, serum 2024 025 [facility], [address] [place] [address], [id number], 02/01/2025 16:20:43 Referral None recorded . Procedures None recorded . Surgeries None recorded . Imaging None recorded . Medication Orders None recorded . Patient TargetsNo targets recorded. Patient Instructions Encounter Date Encounter Id Patient Instructions Last Modified By Organization Details Last Modified Time 02/01/2025 [id number] pulse oximetry* Not available 02/01/2025 16:15:39 Reason for Referral None Reported. Problems Name Problem SNOMED Code Status Onset Date Resolution Date Notes Provider Name and Address Organization Details Recorded Time Anxiety 60149048 Active 2017 Belgica lozano [facility] 5 12:13:39 Asthma 649653057 Active 2019 Marco Bang, DO [address] [facility], [place], [address], [facility] 0 15:01:58 At increased risk for suicide 228372753 Active 2019 Belgica lozano [facility] Internal [facility] 5 12:13:39 Candidias is of vagina 64266563 Active 2021 Belgica lozano [facility] Internal [facility] 5 12:13:45 Bacterial vaginosis 475441435 Active 2021 Belgica lozano [facility] 5 12:13:45 Pain in left foot 050360968580 107 Active 2022 Belgicapedro Caraballo null, [facility] 5 12:13:45 Acute urinary tract infection 896786396 Active 2022 Belgica Caraballo null, [facility] 5 12:13:45 Left Achilles tendiniti s 504819290834 102 Active 2023 Belgicapedro Caraballo null, [facility] 5 12:13:45 Painless rectal bleeding 886185243 Active 2024 Marco Bang, [address], [address], [facility] 5 11:58:51 Hemorrhoi ds 00732067 Active 2024 Marco Bang, [address], [address], [facility] 5 12:02:34 Acute infective bronchiti s 501802905 Active 2024 LINK COLON [address] [place], [address], [facility] 5 12:22:36 Fatigue 87234908 Active 2024 Marco Bang, DO [address] [place] [address], [address], [facility] 5 16:15:12 Problem Notes None recorded. Medical [...] Updated DateTime 5 170.18 cm 27.1 kg/m2 72456.2 g 98 % 79 /min 108/72 mm[Hg] ASIA ANA [facility] 5 16:06:38 Social History Question Answer Notes [...] Details Recorded Time MMR 02/19/2000 miguel lozano [facility] 12/04/2020 14:14:09 MMR 04/05/1997 miguel lozano [facility] 12/04/2020 14:14:19 varicella 10/24/2008 miguel lozano [facility] 12/04/2020 14:14:37 varicella 12/28/1996 miguel lozano [facility] 12/04/2020 14:14:41 Hep B, adolescent or pediatric 09/28/1996 miguel lozano [facility] 12/04/2020 14:15:03 Hep B, adolescent or pediatric 02/04/1996 miguel lozano [facility] 12/04/2020 14:15:09 Hep B, adolescent or pediatric 1995 miguel lozano [facility] 12/04/2020 14:15:14 Tdap 10/24/2008 miguel lozano [facility] 12/04/2020 14:15:28 COVID-19, mRNA, LNP-S, PF, 30 mcg/0.3 mL dose 07/17/2020 completed Batsheva lozano, [facility] 04/25/2022 08:18:26 COVID-19, mRNA, LNP-S, PF, 30 mcg/0.3 mL dose 08/07/2020 completed Batsheva lozano, [facility] 04/25/2022 08:18:33 influenza, unspecified formulation 02/09/2020 completed Batsheva lozano, [facility] 04/25/2022 08:18:55 influenza, unspecified formulation 05/14/2024 completed Marlo lozano, [facility] 05/16/2024 08:27:13 Past Encounters Encounter ID Performer Location Encounter Start Date Encounter Closed Date Diagnosis/Indication Diagnosis SNOMED-CT Code Diagnosis ICD10 Code Diagnosis IMO Codes Diagnosis Note [id number] Marco Bang DO [facility] [address] [facility],[place] [address] 02/01/2025 15:58:14 02/01/2025 16:29:03 Depression screening 364211447 Z13.31 neg Asthma 734872154 J45.20 using inhaler more with activities Painless r ectal bleeding 741744840 K62.5 STILL waiting to get colonoscop y in the meantime will chk lab Fatigue 19049976 R53.82 670250 long discussion Health Concerns Section Related Observation LastModified by Organization Detai ls LastModified Time None Recorded Concern Status LastModified by Organization Details LastModified Time None Recorded Payers Encounter Date Sequence Insurance Name Policy Number Policy Campbell Covered Member ID Campbell Member ID Guarantor Name 02/01/2025 1 [employer] [facility] Sammi Renetta [id number] Sammi Jackson Notes Date Note Type Note Provider Name a nd Address Organization Details Recorded Time 02/01/2025 text/html Care Management - AsthmaReported by PatientROS as noted in the HPI Marco Bang DO [address] [place] [address], [phone], [facility] Internal [facility] 02/01/2025 16:17:36 OBGyn Episode No OBEpisode recorded.
--- OUTSIDE RECORDS SUMMARY | 2025-02-01 18:57 | XMS_ITS | Clinical Summary ---
Author Organization [facility] Address [address] [facility] [address] [place] [phone] Phone Care Team Providers Care Nuclear Scientist Name Role Phone Marco Rick DO Unavailable Marco Rick DO Primary Care Provider [phone] Allergies No known active allergies Medications buPROPion (WELLBUTRIN XL) 300 MG ER 24 hr tablet Take 300 mg by mouth daily. Active albuterol 90 mcg/actuation inhaler 1 puff. Active hydrocortisone (ANUSOL-HC) 2.5 % rectal cream APPLY SPARINGLY TO AFFECTED AREA 2 TO 4 TIMES A DAY Active triamcinolone acetonide 0.1 % ointment Apply to affected area nightly Active docusate sodium (COLACE) 50 MG capsule Take 50 mg by mouth 2 (two) times a day. Active Active Problems Problem Noted Date Diagnosed Date LSC (lichen simplex chronicus) 12/04/2023 Overview (06/06/2024): Last Assessment & Plan: Reviewed findings with [...] use. She will return in 6 weeks. Asthma 08/02/2019 Anxiety 09/16/2017 Encounters Date Type Department Care Team Description 01/18/2025 Telephone [facility] [address] [place] [address] Prem Garcia MD 12/01/2024 Telephone [facility] [address] [place] [address] Marco Rick, from Last 3 Months Immunizations Immunization Administration Dates Next Due DTaP, unspecified formulation 01/04/2001 ,07/18/1997,06/27/1996,04/25,03/16/1996 HPV9 09/10/2020,05/01/2020,03/27/2020 Hepatitis B, unspecified formulation 09/28/1996, 02/04/1996,1995 Hib, unspecified formulation 04/05/1997, 06/27/1996,04/27/1996,03/16 INFLUENZA, SPLIT VIRUS, TRIVALENT PF 10/26/2015 INFLUENZA, SPLIT VIRUS, TRIV ALENT W/ PRESERVATIVE IM 02/09/2020,03/19/2011 MMR 02/19/2000,04/05/1997 Meningococcal MCV4P 10/26/2015 Polio - OPV 01/04/2001, 7,04/27/1996,03/16 Tdap 11/14/2016,10/24/2008 Varicella 10/24/2008,12/28/1996 Family History Medical History Relation Comments Hypertension Mother Relation Status Comments Mother Social History Tobacco Use Types Packs/Day Years [...] Sign Reading Time Taken Comments Blood Pressure 128/78 06/06/2024 3:16 PM EDT Pulse 79 06/06/2024 3:16 PM EDT Temperature 36.6 C (97.8 F) 06/06/2024 3:16 PM EDT Respiratory Rate - - Oxygen Saturation 98% 06/06/2024 3:16 PM EDT Inhaled Oxygen Concentration - - Weight 78.2 kg (172 lb 6.4 oz) 06/06/2024 3:16 P M EDT Height - - Body Mass Index - - Plan of Treatment Scheduled Procedures Name Priority Associated Diagnoses Date/Ti me COLONOSCOPY Blood in stool Health Maintenance Due Date Last Done Comments DEPRESSION SCREENING 2007 HEPATITIS C SCREENING 12/25/2013 HIV ONE-TIME SCREENING (18-65 YEARS) 12/25/2013 PNEUMOCOCCAL VACCINES (0-49 years) (1 of 2 - PCV) 12/25/2014 PAP SMEAR 10/27/2020 10/27/2017, 10/27/2017 INFLUENZA VACCINE (#1) 2024 , 10/26/2015, 03/19/2011 COVID-19 VACCINE (3 - 2024- season) 2024 08/07/2020, 07/17/2020 Adult Td,Tdap Booster 11/14/2026 11/14/2016, 009 HIB VACCINES Completed 04/05/1997, 06/01, 04/27/1996, Additional history exists MENINGOCOCCAL VACCINES (ACWY) Aged Out 10/26/2015 No longer eligible based on patient's age to complete this topic SMOKING STATUS SCREENING (Once After 26 Yrs) Completed 06/06/2024 HEPATITIS A VACCINES Aged Out No long er eligible based on patient's age to complete this topic MENINGOCOCCAL VACCINES (B) Aged Out N o longer eligible based on patient's age to complete this topic Medical Devices Not on file Procedures Procedure Name Priority Date/Time Associated Diagnosis Comments PAP TEST Routine 10/27/2017 12:00 AM EDT from Last 3 Months or Most Recently Relevant to Health Maintenance Results * Pap Smear (10/27/2017 12:00 AM EDT) 10/27/2017 10/28/2017 12: 00 PM EDT Narrative SEE NARRATIVE - 11/01/2017 3:56 PM EDT [address] [address] [employer] Representative: Anita Phelps MD [employer] Cytology Report FINAL DIAGNOSIS A. PAP SMEAR (SUREPATH) CE: SPECIMEN ADEQUACY: Satisfactory for evaluation; transformation zone present. INTERPRETATION: NEGATIVE FOR INTRAEPITHELIAL LESION OR MALIGNANCY. Electronically Signed Out By: Celia GURROLA([facility]) The Pap test is a screening test primarily for squamous cancers and precursors and has associated false-negative and false-positive results. New technologies such as liquid-based preparations may decrease but will not eliminate all false-negative results. Regular sampling and follow-up of unexplained clinical signs and symptoms are recommended to minimize false negative results. CLINICAL HISTORY Date of Last Menstrual Period: 09/21/2017 Other Clinical Conditions: Screening Pap Other: First PAP. SPECIMEN SOURCE A: PAP SMEAR (SUREPATH) CE Patient Name: TAISHA JACKSON : 1995 (Age: 21) Sex: F Institution: [facility] Location: [id number] Date of Collection: 10/27/2017 Date of Reported: 11/01/2017 15:56 Results to: Abbie Mcmillan CNM Abbie Mcmillan CNM, MPH CYTOLOGY ORDERABLES Fi nal Result SEE NARRATIVE from Last 3 Months or Most Recently Relevant to Health Maintenance Insurance [facility] PPO [employer] [facility] PPO Care Teams Nuclear Scientist Relationship Specialty Start Date End Date Marco Rick DO [email or web address] PCP - General Internal Medicine 10/21/17 Marco Rick DO Internal Medicine 10/21/17 Additional Source Comments The information contained in this document represents components of the legal health record. It is not the complete legal health record.[facility]
[2025-02-01 19:16] LABS: Iron 85 mcg/dL (30-160); Percent Iron Saturation 30 % (15-50); Total Iron Binding Capacity 280 mcg/dL (228-428); Unsaturated Iron Binding 195 ug/dL
[2025-02-01 19:19] LABS: Hematocrit 38.0 % (37.0-47.0); Hemoglobin 13.1 g/dl (12.0-16.0); Imm Gran Abs Auto 0.02 X10*3/uL (0.00-0.03); Imm Gran Pct Auto 0.3 % (0.0-0.4); Lymphocytes Absolute Auto 2.2 X10*3/uL (1.2-4.9); Mean Corpuscular HGB Conc 34.5 g/dl (31.0-35.0); Mean Corpuscular Hemoglobin 31.7 pg (27.0-33.0); Mean Corpuscular Volume 92.0 fL (80.0-98.0); NRBC Abs Auto 0.000 X10*3/uL (0.0-0.012); NRBC Pct Auto 0.0 /100WBC (0.0-0.2); Platelet Count 242 X10*3/uL (160-400); Red Blood Count 4.13 X10*6/uL (4.20-5.50); White Blood Count 6.1 X10*3/uL (4.8-10.8)
[2025-02-01 19:36] LABS: Ferritin 108 ng/mL (10-122)
[2025-02-01 19:40] LABS: Vitamin B12 362 pg/mL (200-900)
== END 2025-02-01 16:21 | disposition home or self-care (01) ==
LOC: HO.MANLDS 16:20
PROVIDERS: Visit Provider Internal Medicine
DX: K62.5 Hemorrhage of anus and rectum (principal); R53.82 Chronic fatigue, unspecified; Z13.21 Encounter for screening for nutritional disorder
CPT/HCPCS: 36415; 82306; 82607; 82728; 83540; 84443; 85025